=== PATIENT | female | born 1945 | race Caucasian/White ===

== ENCOUNTER 2019-12-19 06:28 | Inpatient (IN) | payer MEDICARE, OTHER, SELFPAY ==
[2019-12-07 12:56] VITALS: BMI 49.0
[2019-12-19] VITALS (14 sets, daily range): BP systolic 105–132; BP diastolic 59–73; PULSE 72–85; RESP 14–20; TEMP 35.8–36.8; O2SAT 92–99; BMI 49.0
[2019-12-19] MEDS: LACTATED RINGERS 1,000 ML 42 ML IV (08:29)
--- NOTE | 2019-12-19 08:31 | DI.RAD.S_ITS ---
PROCEDURE: XR KNEE LT 1TO2V INDICATIONS: total left knee TECHNIQUE: 2 views of the knee were acquired. COMPARISON: None. FINDINGS: Bones: Status post knee arthroplasty. Alignment is anatomic. No suspicious bony lesions. Soft tissues: No joint effusion. No suspicious soft tissue calcifications. IMPRESSION: Expected appearance following knee arthroplasty. Dictated by: Tahmina Benito M.D. on 12/19/2019 at 11:36 Approved by: Tahmina Benito M.D. on 12/19/2019 at 11:37
[2019-12-19] MEDS: CELECOXIB 200 MG CAPSULE PO (08:41)
[2019-12-19] MEDS: ACETAMINOPHEN 325 MG TABLET 975 MG PO (08:41)
[2019-12-19] MEDS: PREGABALIN 75 MG CAPSULE PO (08:41)
--- NOTE | 2019-12-19 08:42 | PM.PREOP ---
Pre-operative Note Interval Note History & Physical reviewed/Exam performed by Physician: Yes Changes to H&P: No
--- NOTE | 2019-12-19 08:47 | P.OP_ITS ---
Operative Date/Time/Diagnoses Date of procedure: 12/19/19 Time of procedure: 10:41 Pre-op diagnosis: Left knee osteoarthritis Post-op diagnosis: same Procedure & Clinicians Procedure: Left total knee arthroplasty Same procedure as scheduled: Yes Indications: The patient presents today for total knee arthroplasty after failure of conservative treatment. The nature of the procedure including the risks and benefits, alternatives, postoperative course and expected outcome were discussed and all questions answered. Consent was obtained. Operative site confirmed and marked. Surgeon: Randy Irving Motion Picture Equipment Machinist: Hai Yarbrough Anesthesia Type: General, Spinal and Local Operative Notes Findings: The patient's leg was quite large and she had a significant loss of range of motion which was approximately 10-80 when measured after anesthesia. A standard femoral cut was made with a 12 mm cut was made off the lateral tibial side. Standard exposure and osteophyte removal was utilized medially. The knee was still tight in both flexion and extension. Another 2 mm of tibia was then cut. This nicely balance the knee. I did leave the knee with a slight bit of increased laxity in both flexion and extension given her severe loss of motion preoperatively. Patellar tracking was excellent. The tibial bone did seem somewhat soft so a 100 mm x 12 mm stem was utilized. Closure Type: primary Specimen(s): none sent Prosthetic devices, grafts, tissues, transplants, or devices: [employer] BCS: 4 femoral component, 3 tibial component, 9 mm BCS polyethylene tray with 100 mm long 12 mm diameter stem and 29 x 7.5 mm round patella Applied: implant(s) Estimated Blood Loss (mL): 10 Blood products transfused: none Tourniquet time (min): 71 Procedure in detail: The patient was taken to the operative suite and placed under anesthesia. The patient was given prophylactic antibiotics prior to surgery. The patient was also given tranexamic acid, 1 g, just prior to surgery for postoperative hemostasis. The lateral knee was prepped and the joint injected with 20 mL of 1% Lidocaine with epinephrine. The knee was then prepped and draped in usual sterile fashion. The leg was exsanguinated with an Esmarch dressing and the tourniquet raised to 250 torr. A 15 cm anterior incision was made. Next a medial trivector arthrotomy was made. The extensor mechanism was marked to ensure accurate repair. Initial exposing dissection was carried out medially and laterally. The knee was then flexed and the intramedullary femoral guide fermin placed. The distal femoral cut was made in 6? of valgus at the +0 position. The femoral size was measured and the appropriate cutting block was then placed and the anterior, posterior and chamfer cuts made. The intramedullary tibial alignment fermin was then placed. The guide was set to remove approximately 12 mm from the less affected lateral side. The proximal tibial cut was then made with an oscil lating saw. All meniscus and bony debris was then removed. Posterior femoral osteophytes removed with a curved osteotome. Flexion extension gaps were checked. No specific balancing was required other than routine exposure and removal of osteophytes. The knee was tight in both flexion and extension other 2 mm of tibial bone was removed. The soft tissues were then injected with a combination of 20 mL of half percent Marcaine with epinephrine and 20 mL of Exparel. The trial components were then placed. The knee was then extended and the patellar thickness was measured and a cut made removing approximately 7-8 mm of bone. The patella was then sized and drilled. Some excess lateral bone was excised and the patellofemoral ligament released. The knee went into full extension and flexion beyond 120?. Flexion was mainly stop by soft tissue. There was excellent medial-lateral balance throughout motion. I did leave the knee slightly looser in both flexion and extension due to her significant motion loss prior to surgery. Patellar tracking was excellent. The trial components were removed and the knee was cleansed with Pulsavac irrigation and dried. The final components were cemented with high viscosity vacuum mixed bone cement with antibiotics. The joint was filled with a dilute Betadine solution. The knee was held in extension and the patellar clamped until the cement was adequately cured. The knee was then irrigated. The extensor mechanism was closed with 5 interrupted #1 Vicryl sutures and a running Quill suture at approximately 90 degrees of flexion. The joint was then injected with a combination of 1 g of tranexamic acid and 20 mL of quarter percent Marcaine with epinephrine. The subcutaneous tissue was closed with 2 0 Vicryl. The skin was closed with absorbable subcuticular sutures and surgical adhesive. An Aquacel dressing and Jann wrap were then applied. The patient tolerated the procedure well and was returned to recovery room in good condition. Complications: none Post-operative Condition: stable Disposition: PACU Plan for aftercare: Standard postoperative total knee protocol.
[2019-12-19] MEDS: CEFAZOLIN 2 GM/100 ML FROZ.PIGGY IV (08:58)
--- NOTE | 2019-12-19 09:37 | SUR.OPER ---
Supine on padded OR bed. Pillow under head, arms secured on padded armboards <90 degree abduction. Safety belt across torso. Non-operative leg secured with tape over blanket over lower leg. Operative leg secured in [place] positioner. Foam padded brace at thigh of operative leg.
[2019-12-19] MEDS: BUPIVACAINE 0.25% W/ EPI (PF) 40 ML, BUPIVACAINE LIPOSOME 266 MG, SODIUM CHLORIDE 0.9% ... INJ (09:42)
[2019-12-19] MEDS: BUPIVACAINE 0.25% W/ EPI (PF) 20 ML, TRANEXAMIC ACID 1,000 MG, SODIUM CHLORIDE 0.9% 10 ML INJ (09:44)
[2019-12-19] MEDS: LIDOCAINE 1% W/EPI 20 ML INJ (09:45)
[2019-12-19] MEDS: LACTATED RINGERS 1,000 ML 125 ML IV ×2 (12:41→20:37)
[2019-12-19] MEDS: HYDROMORPHONE 2 MG TABLET PO (12:41)
[2019-12-19] MEDS: ACETAMINOPHEN 325 MG TABLET 650 MG PO (14:04)
[2019-12-19] MEDS: IBUPROFEN 400 MG TABLET PO ×2 (14:04→16:54)
--- NOTE | 2019-12-19 14:30 | PT.IIE ---
Current Diagnoses Bilateral primary osteoarthritis of knee (12/19/19) Surgery Performed Operation Date: 12/19/19 08:45 Actual Procedures p Total Knee Arthroplasty(Left) - Randy Irving MD Surgical History (Last Updated 12/07/19 @ 13:21 by Gris Selby RN) Hx of appendectomy (Acute) Hx of arthroscopy of left knee (Acute) Hx of arthroscopy of right knee (Acute) Hx of cholecystectomy (Acute) Hx of eye surgery (Acute) Hx of tubal ligation (Acute) Medical History (Last Updated 12/07/19 @ 13:21 by Gris Selby RN) Claustrophobia (Acute) Eczema (Acute) Hearing impaired (Acute) HLD (hyperlipidemia) (Acute) HTN (hypertension) (Acute) Hypothyroidism (Acute) Melanoma (Acute ~2018) BIMAL on CPAP (Acute) Osteoarthritis (Acute) Physical Therapy Inpatient Evaluation/Re-Eval M1 PT/OT-IP Prior Functional Status Start: 12/19/19 16:16 Freq: NEEDED Status: Active Protocol: Document 12/19/19 14:30 AB (Rec: 12/19/19 16:37 AB [id number]) Medical Review Prior Functional Status Medical History Reviewed Yes Communication able to make needs known Mobility and Gait pt stated that she is modified independent with all mobilities and ambulation using 4WW indoors and SPC outdoors Social History Household Members spouse,children Living Arrangements House Number of Floors (Floors) Two Floors Number of Stairs To Enter/Railing? 2 steps to enter without rails from the garage 5 steps from the back/porch with L rail ascending to bedroom level 3 steps with bilateral rail s+ 12 steps with L rail ascending Home Environment Standard Height Toilet,Walk in Shower Home Equipment Four Wheel Walker,Straight Cane Additional Social History Comment pt has a toilet safety frame pt has an adjustable bed M2 PT-IP Current Condition Start: 12/19/19 16:16 Freq: NEEDED Status: Active Protocol: Document 12/19/19 14:30 AB (Rec: 12/19/19 16:37 AB [id number]) Physical Therapy Current Condition Current Condition Evaluation Date 12/19/19 Treatment Diagnosis s/p L TKA; difficulty in walking Onset Date 12/19/2019 Weight Bearing Status Weight Bearing Status Weight Bear as Tolerated Allowed Weight Bearing Amount (enter % LLE WBAT or #) (%) M3 PT-IP Subjective Start: 12/19/19 16:16 Freq: NEEDED Status: Active Protocol: Document 12/19/19 14:30 AB (Rec: 12/19/19 16:37 AB [id number]) Subjective Physical Therapy Visit Type Type Initial Evaluation Visit Start Time 14:30 Visit Stop Time 15:30 Total Visit Minutes 60 Number of COMMERCIAL COLLECTOR Visits 0 Physical Therapy Visit Comments Patient Comments agreeable to do PT Therapy Pain Assessment Pain When Pain Assessed During Mobility Pain Present Pain Present Pain Reported Location Left Knee Intensity 5 Pain Management Techniques Apply Cold M4 PT-IP Mobility and Gait Start: 12/19/19 16:16 Freq: NEEDED Status: Active Protocol: Document 12/19/19 14:30 AB (Rec: 12/19/19 16:37 AB [id number]) PT-Bed Mobility Assessment Supine to Sit Supine to Sit Minimal Assistance,Head of Bed Elevated Scooting Scooting to Edge of Bed Contact Guard Assistance PT-Transfer Assessment Sit to and From Stand Sit to and from Stand Minimal Assistance,1 Person Assistance,Use of Upper Extremities Equipment Transfer Assistive Device Gait Belt,Front Wheeled Walker Orthotic/Prosthetic Devices or Brace: No Transfers Transfer Destination Chair Transfer Technique ambulated using FWW Transfer Ability Level of Assist Minimal Assistance,1 Person Assistance Comments Mobility Comments pt completed supine to sit initially with bed straight but unable to sit up and HOB elevated and completed with min A and cues. pt has an adjustable bed at home. pt was able to sit on EOB SBA. completed sit to stand min A and cues. ambulated towards the chair using FWW ~ 12 ft min A and cues. c/o slight dizziness after ambulation but disappeared upon sitting on chair. positioned pt on chair . call light and table placed within reach. informed pt regarding DME needs and pt agreed and understood. Gait Assessment Gait Gait Assistance Required: Minimum Assistance Distance (Feet) 12 Able to Maintain Weight Bearing Status Yes During Gait Assistive Devices Assistive Device Gait Belt,Front Wheeled Walker Orthotic/Prosthetic Devices or Brace: No Gait Deviations General Gait Pattern Antalgic,Decreased Stride Length,Decreased Feet Clearance,Step-to Gait Factors Limiting Gait Function Factors Limiting Gait Function Decreased Activity Tolerance, Decreased Strength,Limited Range of Motion,Pain,Poor Balance,Poor Safety Awareness PT-Balance Assessment Sitting Balance and Reactions Static Sitting Balance Ability Good Dynamic Sitting Balance Ability Good Standing Balance and Reactions Static Standing Balance Ability Fair Dynamic Standing Balance Ability Fair Device Used FWW M5 PT-IP Objective Assessments Start: 12/19/19 16:16 Freq: NEEDED Status: Active Protocol: Document 12/19/19 14:30 AB (Rec: 12/19/19 16:37 AB [id number]) Orientation Orientation/Cognition Level of Alertness Alert Orientation Name,Place,Situation Language Function Ability No Deficits Noted Safety Awareness Understands Safety Issues Memory Description No Deficits Noted Gross Range of Motion Lower Extremity ROM Assessment Left Impaired Impairments L knee flexion ~ 50 deg Strength Lower Extremity Strength Assessment Left Impaired Hip 4-/5 Knee 3+/5 Coordination Assessment Gross Coordination Gross Coordination WNL Sensation Assessment Sensation Gross Sensation WNL Muscle Tone Muscle Tone WNL Yes M6 PT-IP Treatment Start: 12/19/19 16:16 Freq: NEEDED Status: Active Protocol: Document 12/19/19 14:30 AB (Rec: 12/19/19 16:37 AB [id number]) Physical Therapy Treatment Education Education Provided Precautions,Weight Bearing Status,Post-Op Packet,Safety M7 PT-IP Assessment and Plan Start: 12/19/19 16:16 Freq: NEEDED Status: Active Protocol: Document 12/19/19 14:30 AB (Rec: 12/19/19 16:37 AB [id number]) PT Summary Assessment and Plan Potential Rehabilitation Potential Good Status of Condition at Evaluation Stable Summary Impairments Pain,ROM,Strength,Balance,Bed Mobility,Transfers,Gait, Activity Tolerance Assessment Summary pt requirng min A with mobility using FWW. will likely progress during hospital stay. pt will have her spouse and son to assist her at home and stated that she is set up for outpt PT. will continue to assess pt's progress for safe d/c plan. Goals Bed Mobility Goal Independent Transfer Goal Independent,Front Wheeled Walker,Four Wheeled Walker Gait Goal Independent,Front Wheel Walker ,Four Wheel Walker Gait Distance 150 Other Goals up/down 12 steps L rail ascending CGA Days to Meet Goals 5 Frequency of Treatment Frequency Of Treatment Twice a Day Treatment Plan Physical Therapy Treatment Plan Bed Mobility Training,Transfer Training,Gait Training, Therapeutic Exercise,Balance Retraining,Post Op Education, Discharge Planning,Hot or Cold Pack,Neuromuscular Re-ed, Coordination Retraining,Manual Therapy Recommendations To Nursing Amount of Assist Needed 1 Person Assist Discharge Recommendations PT Discharge Recommendations Home with Assistance, Outpatient PT Equipment Needed for Home Before FWW if not safe with 4WW Discharge Transportation Needs at Discharge Private Vehicle
--- NOTE | 2019-12-19 14:31 | PC.NURSE ---
Patient to floor after having surgery to her L.knee. Dressing with aquacel and giorgio wrap intact. Patients skin wnl, she did have some yeast under her r. breast without any redness. On LR at 125cc/hr. Given dilaudid po and not super helpful. Then given tylenol and ibuprofen for comfort. She has been voiding on the bed monae and tolerating well. at bedside.
[2019-12-19] MEDS: ATORVASTATIN 20 MG TABLET PO (16:54)
[2019-12-19] MEDS: OXYCODONE IR 5 MG TABLET 10 MG PO (16:54)
[2019-12-19] MEDS: CEFAZOLIN VIAL 3 GM in SODIUM CHLORIDE 0.9% 100 ML 200 ML IV (17:05)
[2019-12-19] MEDS: ONDANSETRON 4 MG/2 ML INJ IV (19:22)
[2019-12-20] VITALS (13 sets, daily range): BP systolic 65–133; BP diastolic 33–62; PULSE 58–92; RESP 18–20; TEMP 35.9–37.2; O2SAT 92–96
[2019-12-20] MEDS: CEFAZOLIN VIAL 3 GM in SODIUM CHLORIDE 0.9% 100 ML 200 ML IV (00:47)
[2019-12-20] MEDS: IBUPROFEN 400 MG TABLET PO ×4 (00:48→13:26)
[2019-12-20 07:16] LABS: Hematocrit 33.9 % (36-46); Hemoglobin 11.6 g/dL (12.0-16.0)
[2019-12-20] MEDS: ASPIRIN EC 81 MG TABLET PO ×2 (08:14→22:20)
[2019-12-20] MEDS: LEVOTHYROXINE 100 MCG TABLET PO (08:15)
[2019-12-20] MEDS: LOSARTAN 50 MG TABLET 75 MG PO (08:15)
[2019-12-20] MEDS: ACETAMINOPHEN 325 MG TABLET 650 MG PO ×3 (08:16→22:20)
[2019-12-20] MEDS: METOPROLOL ER 50 MG TABLET 100 MG PO (08:16)
[2019-12-20] MEDS: AMLODIPINE 5 MG TABLET PO (08:16)
--- NOTE | 2019-12-20 09:28 | PT.IPTN ---
Addendum entered and electronically signed by Maria Elena Vincent PTA 12/20/19 12:58: Pt reported dizziness, feeling weird once sitting chair and muffled hearing me. Vital taken 91% on room air, BP 89/46, HR 70bpm and + SOB. Improved with cuing for pursed breathing. Assisted patient recline in chair and stated felt better. Notified assistant foreman to pass along to nurse. Suggested to assistant foreman to provide patietn with cold back for L knee wtih confirmation. Original Note: Current Diagnoses Bilateral primary osteoarthritis of knee (12/19/19) Surgery Performed Operation Date: 12/19/19 08:45 Actual Procedures p Total Knee Arthroplasty(Left) - Randy Irving MD Physical Therapy Treatment Note M2 PT-IP Current Condition Start: 12/19/19 16:16 Freq: NEEDED Status: Active Protocol: Document 12/19/19 14:30 AB (Rec: 12/19/19 16:37 AB [id number]) Physical Therapy Current Condition Current Condition Evaluation Date 12/19/19 Treatment Diagnosis s/p L TKA; difficulty in walking Onset Date 12/19/2019 Weight Bearing Status Weight Bearing Status Weight Bear as Tolerated Allowed Weight Bearing Amount (enter % LLE WBAT or #) (%) M3 PT-IP Subjective Start: 12/19/19 16:16 Freq: NEEDED Status: Active Protocol: Document 12/20/19 08:48 SP (Rec: 12/20/19 12:09 SP [email or web address]) Subjective Physical Therapy Visit Type Type Treatment Note Visit Start Time 08:48 Visit Stop Time 09:28 Total Visit Minutes 40 Number of PRODUCT MANAGER E [employer]ER[employer] Visits 1 Physical Therapy Visit Comments Patient Comments Pt agreeable to working with PT. Therapy Pain Assessment Pain When Pain Assessed During Mobility Pain Present Pain Present Pain Reported Location Left Knee Intensity 3 Scale Used Numeric (1 - 10) Pain Management Techniques Re-positioning,Timing of Activity with Medications M4 PT-IP Mobility and Gait Start: 12/19/19 16:16 Freq: NEEDED Status: Active Protocol: Document 12/20/19 08:48 SP (Rec: 12/20/19 12:09 SP [id number]) PT-Bed Mobility Assessment Supine to Sit Supine to Sit Standby Assistance,Head of Bed Elevated,Bedrails Scooting Scooting to Edge of Bed Standby Assistance PT-Transfer Assessment Sit to and From Stand Sit to and from Stand Standby Assistance,Contact Guard Assistance,Use of Upper Extremities Equipment Transfer Assistive Device Gait Belt,Front Wheeled Walker Orthotic/Prosthetic Devices or Brace: No Transfers Transfer Destination Chair,Wheelchair Transfer Technique pt ambulated using FWW Transfer Ability Level of Assist Standby Assistance,Contact Guard Assistance,Use of Upper Extremities Comments Mobility Comments Pt was laying in bed when arrived. Elevated supine to sitting (stated has elevated bed at home) with ability to reposition LLE no UE supporte required and scoot to EOB SBA. Sit to stand with cuing for use of 1-2 UE press up from bed and other on FWW for self support CGA intially then SBA rest of performances from w/c. Cued patient for BLE closer together inside FWW positioning prior to coming to stand with LLE out front more and RLE knee flexed with foot under her for easier hip hinge wt shift to standing. Pt performed 3 sit to stands from w/c with occasional cuing for UE positioning and slow descent with hip hinge with good follow through. Pt was up in chair when returned from ambulation in hallway and stair mgt. She had call light and all needs in reach with BLE on floor or able to prop up on cushion to allow self knee flexion exercises between PT sessions. Pt identified proper use of call llight for help to get up if needed. Gait Assessment Gait Gait Assistance Required: Standby Assistance Distance (Feet) 70 Able to Maintain Weight Bearing Status Yes During Gait Assistive Devices Assistive Device Gait Belt,Front Wheeled Walker Orthotic/Prosthetic Devices or Brace: No Gait Deviations General Gait Pattern Antalgic,Decreased Stride Length,Decreased Feet Clearance,Step-to Gait Factors Limiting Gait Function Factors Limiting Gait Function Decreased Activity Tolerance, Decreased Strength,Limited Range of Motion,Pain,Poor Balance,Poor Safety Awareness Comments Gait Comments Pt was able to tolerated further distance approx 70 ft x2 before requiring seated rest using fWW SBA with cuing for increased L knee flexion and heel toe gait with step over step to progress toward normal patterning with good follow through durign intermitttent cuing. Pt required w/c follow secondary to decreased activity tolerance with stating pain didn't increase. Stair Climbing Assessment Evaluation Level of Assist On Stairs Minimal Assistance,1 Person Assistance Devices Stair Climbing Assistive Devices Left Railing Technique/Endurance Stair Climbing Direction Ascend and Descend Stair Climbing Technique Step to Step Number of Steps Climbed 3 Stair Climbing Set # Repetitions (reps) 1 Comments Stair Climbing Comments Pt was able to complete only 1 set of 3 stair mgt durign tx secondary to decreased activity tolerance and L knee pain 3/10 using L HR with BUE and Min A to ascend and CGA descend with occasional cuing for intial step patterning up RLE leading and LLE leading descend,stable no LOB. Cued x1 for trunk wt shift forward initialy 1 step ascend for safety and COG over ILIANA. PT-Balance Assessment Sitting Balance and Reactions Static Sitting Balance Ability Good Dynamic Sitting Balance Ability Good Standing Balance and Reactions Static Standing Balance Ability Fair Dynamic Standing Balance Ability Fair Device Used FWW M5 PT-IP Objective Assessments Start: 12/19/19 16:16 Freq: NEEDED Status: Active Protocol: Document 12/19/19 14:30 AB (Rec: 12/19/19 16:37 AB [id number]) Orientation Orientation/Cognition Level of Alertness Alert Orientation Name,Place,Situation Language Function Ability No Deficits Noted Safety Awareness Understands Safety Issues Memory Description No Deficits Noted Gross Range of Motion Lower Extremity ROM Assessment Left Impaired Impairments L knee flexion ~ 50 deg Strength Lower Extremity Strength Assessment Left Impaired Hip 4-/5 Knee 3+/5 Coordination Assessment Gross Coordination Gross Coordination WNL Sensation Assessment Sensation Gross Sensation WNL Muscle Tone Muscle Tone WNL Yes M6 PT-IP Treatment Start: 12/19/19 16:16 Freq: NEEDED Status: Active Protocol: Document 12/20/19 08:48 SP (Rec: 12/20/19 12:09 SP [id number]) Physical Therapy Treatment Exercises Exercises Ankle Pumps,Gluteal Sets,Quad Sets,Heel Slides,Supine Hip Abduction,Seated Knee Flexion/ Extension Knee ROM Measurement approx 90 deg seated self performance in chair post amb Education Education Provided Precautions,Weight Bearing Status,Post-Op Packet,Safety Other Treatments Other Treatment Performed Educated self knee flexion and heel raises while seated in chair to improved L knee flexion for more normal range ffor gait. M7 PT-IP Assessment and Plan Start: 12/19/19 16:16 Freq: NEEDED Status: Active Protocol: Document 12/20/19 08:48 SP (Rec: 12/20/19 12:09 SP [email or web address]) PT Summary Assessment and Plan Potential Rehabilitation Potential Good Status of Condition at Evaluation Stable Summary Impairments Pain,ROM,Strength,Balance,Bed Mobility,Transfers,Gait, Activity Tolerance Assessment Summary pt requirng CG initilly then SBA with mobility using FWW, Min A ascend and CGA descend 3 stairs LHR. Pt has 12 stairs to complete at home using L HR. Discussed need for caregiver training with / son and performance 12 stairs prior to DC. Pt stated son might add hand rail in garage prior to DC but unsure but at this time there is none but easier 3 consecutive steps to manage will keep PT posted. PRODUCT MANAGER E [employer]ERCE requested a pic if possible after complete if prior to DC otherwise has to complete 12 step L HR. pt will have her spouse and son to assist her at home and stated that she is set up for outpt PT. will continue to assess pt's progress for safe d/c plan. Goals Bed Mobility Goal Independent Transfer Goal Independent,Front Wheeled Walker,Four Wheeled Walker Gait Goal Independent,Front Wheel Walker ,Four Wheel Walker Gait Distance 150 Other Goals up/down 12 steps L rail ascending CGA Days to Meet Goals 5 Frequency of Treatment Frequency Of Treatment Twice a Day Treatment Plan Physical Therapy Treatment Plan Bed Mobility Training,Transfer Training,Gait Training, Therapeutic Exercise,Balance Retraining,Post Op Education, Discharge Planning,Hot or Cold Pack,Neuromuscular Re-ed, Coordination Retraining,Manual Therapy Other Recommendations and Next Treatment Caregiver training /son Focus , ambulate with 4WW (need FWW if not safe with 4WW), stair mgt usign LHR 12 stairs. Recommendations To Nursing Amount of Assist Needed 1 Person Assist Discharge Recommendations PT Discharge Recommendations Home with Assistance, Outpatient PT Equipment Needed for Home Before FWW if not safe with 4WW Discharge Transportation Needs at Discharge Private Vehicle
--- NOTE | 2019-12-20 10:21 | PC.NURSE ---
TRAPPER BIRD reported that P.T. told her patient had some dizziness and clogged hearing after her physical therapy. Patient assessed, sitting up in chair and states she does feel better now at rest. BP 108/54, HR 76. Instructed to call for changes, or wanting to get up. Patient comfortable in chair, and aquacel and giorgio wrap remain in place, unchanged. Call light within reach. Continue to monitor.
--- NOTE | 2019-12-20 12:16 | CM.DANOTE ---
DCP; Case received, EMR reviewed and met with patient. , Cem, was also at bedside. Was able to obtain information from patient regarding her baseline activity level prior to her having surgery. DCP assessment completed with information currently available. Patient is a 74 year old female who admitted yesterday morning to the care of the orthopedic team. PCP: [facility]. Patient came to the hospital for a surgical procedure. She had a left total knee arthroplasty. Patient has history of chronic knee pain. Met with patient and her in her room. Patient is pleasant, alert and oriented. Her and her reside in [place]. They also have a son named Vishal, who lives near by and helps out. According to patient, Vishal had been installing railing in the home. He also installed railing in her bathroom by her toilet area. Patient does have stairs in her home, and she stated, she has been able to navigate them, but has been challenging. She does drive, but mentioned that she uses [employer] for groceries, and [employer] as well. She stated and confirmed that she has good family support when she goes home. She will also be doing outpatient P.T. P: DCP to be available for any resources needed. Patient should be able to go home when she is medically stable and cleared by P.T. Patty Hooker RN/Detonator Maker
--- NOTE | 2019-12-20 12:40 | P.PN_ITS ---
Subjective Subjective Date Patient Seen: 12/20/19 Time Patient Seen: 07:00 Interval history: POD #1 s/p left total knee arthroplasty with Dr. Irving. Patient complains of mild to moderate pain in left knee. Rates 4/10. Overnight pain was managed with dilaudid 2mg PO and oxycodone 10mg PO. Per patient, dilaudid did nothing for the pain and states she does better with hydrocodone. Voiding without difficulty/assistance. Mobilizing slowly with PT, 1 assist. She needs to be cleared for 12 steps at home. Denies fever, chills, chest pain, shortness of breath, nausea, vomiting, dizziness, numbness, tingling. Exam Vital Signs (past 8 hours): - 12/20/19 08:00 12/20/19 08:15 12/20/19 08:16 Temperature 98.6 F Pulse Rate 81 Respiratory Rate 18 Blood Pressure 125/59 L 125/59 L 125/59 L Pulse Oximetry 94 12/20/19 10:20 12/20/19 11:25 12/20/19 12:00 Temperature 97.6 F Pulse Rate 76 69 69 Respiratory Rate 18 Blood Pressure 108/54 L 123/55 L 123/55 L Pulse Oximetry 96 Oxygen Delivery Method Room Air,CPAP Oxygen Flow Rate 0 Narrative Exam Narrative: 74 yo morbidly obese female is laying comfortably in bed, in no apparent distress. A&Ox3. Dressing has mild shadow drainage. SCDs in place. Able to actively dorsiflex/plantar flex BL. Sensory function grossly intact to light touch in LE BL. Dorsalis pedis 2+ BL. Calves warm, soft, compressible, non tender to palpation BL. Objective Labs Result Diagrams: 12/20/19 07:00 Labs: Laboratory Results - last 24 hr 12/20/19 07:00 Hgb 11.6 L Hct 33.9 L Assessment & Plan Post-op Postoperative Procedures: Procedures Operation Date: 12/19/19 08:45 Actual Procedures Side Surgeon p Total Knee Arthroplasty Left Randy Irving MD Postoperative plan narrative: Change pain medication management - discontinued d ilaudid PO, ordered oxycodone 5mg and norco. Per patient, would like to try lower dose. Mobilize with PT - currently 1 assist and needs to pass multiple steps for clearance Continue SCDs and ASA 81mg BID for DVT prophylaxis Patient will likely discharge home in next 24-48 hours pending PT clearance for steps Time Spent With Patient Time with patient: less than 15 minutes Quality VTE Deep Vein Thrombosis/Pulmonary Embolism Present on Admission: No
[2019-12-20] MEDS: HYDROCODONE/ACET 5/325 TABLET 1 TAB PO ×3 (14:39→22:21)
--- NOTE | 2019-12-20 14:40 | PT.IPTN ---
Current Diagnoses Bilateral primary osteoarthritis of knee (12/19/19) Surgery Performed Operation Date: 12/19/19 08:45 Actual Procedures p Total Knee Arthroplasty(Left) - Randy Irving MD Physical Therapy Treatment Note M2 PT-IP Current Condition Start: 12/19/19 16:16 Freq: NEEDED Status: Active Protocol: Document 12/19/19 14:30 AB (Rec: 12/19/19 16:37 AB [id number]) Physical Therapy Current Condition Current Condition Evaluation Date 12/19/19 Treatment Diagnosis s/p L TKA; difficulty in walking Onset Date 12/19/2019 Weight Bearing Status Weight Bearing Status Weight Bear as Tolerated Allowed Weight Bearing Amount (enter % LLE WBAT or #) (%) M3 PT-IP Subjective Start: 12/19/19 16:16 Freq: NEEDED Status: Active Protocol: Document 12/20/19 13:45 SP (Rec: 12/20/19 16:00 SP [id number]) Subjective Physical Therapy Visit Type Type Treatment Note Visit Start Time 13:45 Visit Stop Time 14:40 Total Visit Minutes 55 Notes completed caregiver training. Number of WOOL CLASSER Visits 2 Physical Therapy Visit Comments Patient Comments Pt agreeable to working with PT. Therapy Pain Assessment Pain When Pain Assessed During Mobility Pain Present Pain Present Pain Reported Location Left Knee Intensity 6 Scale Used Numeric (1 - 10) Pain Management Techniques Apply Cold,Re-positioning, Timing of Activity with Medications M4 PT-IP Mobility and Gait Start: 12/19/19 16:16 Freq: NEEDED Status: Active Protocol: Document 12/20/19 13:45 SP (Rec: 12/20/19 16:00 SP [id number]) PT-Bed Mobility Assessment Sit to Supine Sit to Supine Moderate Assistance,1 Person Assistance PT-Transfer Assessment Sit to and From Stand Sit to and from Stand Contact Guard Assistance, Minimal Assistance,1 Person Assistance,Use of Upper Extremities Equipment Transfer Assistive Device Gait Belt,Front Wheeled Walker ,4 Wheeled Walker Orthotic/Prosthetic Devices or Brace: No Transfers Transfer Destination Chair,Wheelchair Transfer Technique pt ambulated using 4WW/FWW, and step pivot tranfer Transfer Ability Level of Assist Contact Guard Assistance, Minimal Assistance,1 Person Assistance,Use of Upper Extremities Comments Mobility Comments Pt was seated in chair with BLE elevated when arrived, present to complete caregiver training. donned gait belt and provided CGA sit to stand. WOOL CLASSER educated proper 4WW brake mgt for safety use and brake mgt during stepping with slow pacing for safety awareness prior to standing with good follow throughout treatment, good hand placement and slow descent in to w/c during gait in hallway secondary to decreased activity tolerance same approx 70 ft before required seated rest, CGA using 4WW with good slow pacing. WOOL CLASSER provided assist to push patient rest of distance to stairs while managed the 4WW. provided CGA- Min A ascending/ descending during stair mgt with cuing for body positoning safety for both andproper hand placement with gait belt with good follow through. Pt reported pretty tired and feeling little light headed at top of stairs with demonstration of resting head on arms resting on rail. was able to give her Min support to descend 3 stairs step to patterning more side stepping, stable, no LOB . Pt immediately sat in chair. Pt stated I am really dizzy, not feeling well. WOOL CLASSER requested nearby INBOUND CUSTOMER SERVICE AGENT to acquire BP cuff with no success finding one. WOOL CLASSER pushed patient down to room with following with 4WW. WOOL CLASSER assess vitals while patient seated in w/c with reading 65/ 32 HR 58 SaO2 95% on room air. WOOL CLASSER assisted patient step pivot transfer using FWW w/c to bed with increase support Min A and cuing for safety of BLE into extension during pivot to prevent knee buckling, stable. sitting to supine Mod A for BLE into bed. Pt vitals taken again after 2 min: BP 99/33 HR 66. Nurse arrived in room during supine vitals and discussed response to treatment. Gait Assessment Gait Gait Assistance Required: Contact Guard Assist,1 Person Assist Distance (Feet) 70 Able to Maintain Weight Bearing Status Yes During Gait Assistive Devices Assistive Device Gait Belt,Front Wheeled Walker Orthotic/Prosthetic Devices or Brace: No Gait Deviations General Gait Pattern Antalgic,Decreased Stride Length,Decreased Feet Clearance Factors Limiting Gait Function Factors Limiting Gait Function Decreased Activity Tolerance, Decreased Strength,Limited Range of Motion,Pain,Poor Safety Awareness Comments Gait Comments See mobility comments. Pt decreased gait sets today 70 ft only with using 4WW CGA, improved self corrections of L knee flexion heel toe gait with increased stride and educating awareness to remind her but not to big of steps. Unable to complete second set due to dizziness post stairs and report of light headness. Stair Climbing Assessment Evaluation Level of Assist On Stairs Minimal Assistance,1 Person Assistance Devices Stair Climbing Assistive Devices Left Railing Technique/Endurance Stair Climbing Direction Ascend and Descend Stair Climbing Technique Step to Step Number of Steps Climbed 3 Stair Climbing Set # Repetitions (reps) 1 Comments Stair Climbing Comments See mobility comments. PT-Balance Assessment Sitting Balance and Reactions Static Sitting Balance Ability Good Dynamic Sitting Balance Ability Good Standing Balance and Reactions Static Standing Balance Ability Fair Dynamic Standing Balance Ability Fair Device Used FWW M5 PT-IP Objective Assessments Start: 12/19/19 16:16 Freq: NEEDED Status: Active Protocol: Document 12/19/19 14:30 AB (Rec: 12/19/19 16:37 AB [id number]) Orientation Orientation/Cognition Level of Alertness Alert Orientation Name,Place,Situation Language Function Ability No Deficits Noted Safety Awareness Understands Safety Issues Memory Description No Deficits Noted Gross Range of Motion Lower Extremity ROM Assessment Left Impaired Impairments L knee flexion ~ 50 deg Strength Lower Extremity Strength Assessment Left Impaired Hip 4-/5 Knee 3+/5 Coordination Assessment Gross Coordination Gross Coordination WNL Sensation Assessment Sensation Gross Sensation WNL Muscle Tone Muscle Tone WNL Yes M6 PT-IP Treatment Start: 12/19/19 16:16 Freq: NEEDED Status: Active Protocol: Document 12/20/19 13:45 SP (Rec: 12/20/19 16:00 SP [id number]) Physical Therapy Treatment Education Education Provided Precautions,Weight Bearing Status,Safety M7 PT-IP Assessment and Plan Start: 12/19/19 16:16 Freq: NEEDED Status: Active Protocol: Document 12/20/19 13:45 SP (Rec: 12/20/19 16:00 SP [id number]) PT Summary Assessment and Plan Potential Rehabilitation Potential Good Status of Condition at Evaluation Stable Summary Impairments Pain,ROM,Strength,Balance,Bed Mobility,Transfers,Gait, Activity Tolerance Assessment Summary Pt decreased activity tolerance on stairs and gait, noted decrease in BP during stair mgt. Pt required CGA- Min during mobilitiy using 4WW intially then FWW to step pivot w/c to bed and Min A for BLE into bed secondary to lightheaded/dizzy endof tx with decrease in BP noted. Pt was laying in bed with LLE supported on pillows in comforted extension. Cued for slow diaphramatic breathing. see mobility comments. complete caregiver training including transfers, gait and stair mgt only able to tolerate 3 stairs LHR but requires 12 step prior to DC unless patient plans on not going up to second level to bedroom then only needs to ascend/descend 3 stairs front or garage if son install rails . and patient discussed possibilities if stair to challenging to go to bedroom. WOOL CLASSER requested a pic if rails in garage are installed. pt will have her spouse and son to assist her at home and stated that she is set up for outpt PT. will continue to assess pt's progress for safe d/c plan. Goals Bed Mobility Goal Independent Transfer Goal Independent,Front Wheeled Walker,Four Wheeled Walker Gait Goal Independent,Front Wheel Walker ,Four Wheel Walker Gait Distance 150 Other Goals up/down 12 steps L rail ascending CGA Days to Meet Goals 5 Frequency of Treatment Frequency Of Treatment Twice a Day Treatment Plan Physical Therapy Treatment Plan Bed Mobility Training,Transfer Training,Gait Training, Therapeutic Exercise,Balance Retraining,Post Op Education, Discharge Planning,Hot or Cold Pack,Neuromuscular Re-ed, Coordination Retraining,Manual Therapy Other Recommendations and Next Treatment Continue Caregiver training Focus /son, ambulate with 4WW stair mgt usign LHR 12 stairs . Check orthostatic vitals prior to tx and have portable during tx. Recommendations To Nursing Amount of Assist Needed Standby Assistance Discharge Recommendations PT Discharge Recommendations Home with Assistance, Outpatient PT Equipment Needed for Home Before 4WW Discharge Transportation Needs at Discharge Private Vehicle
[2019-12-20] MEDS: ATORVASTATIN 20 MG TABLET PO (16:48)
[2019-12-20] MEDS: SODIUM CHLORIDE 0.9% 1,000 ML 1000 ML IV (16:48)
[2019-12-20] MEDS: SODIUM CHLORIDE 0.9% FLUSH 10 ML IV (21:29)
[2019-12-21 00:10] VITALS: BP 143/62; PULSE 86; RESP 18; TEMP 37.3; O2SAT 98
[2019-12-21] MEDS: IBUPROFEN 400 MG TABLET PO ×5 (01:22→22:40)
[2019-12-21] MEDS: HYDROCODONE/ACET 5/325 TABLET 1 TAB PO ×6 (02:05→22:00)
[2019-12-21 05:43] VITALS: BP 117/51; PULSE 84; RESP 18; TEMP 36.4; O2SAT 91
--- NOTE | 2019-12-21 06:24 | PC.NURSE ---
Pt alert and oriented x4. SBA with FWW to bathroom. Small amount of drainage on aquacell dressing on left knee. Drainage area marked, no new drainage. Wrapped in giorgio wrap. Pt refuses SCDs. Pain controlled with PRN norco. Pt voiding without issues. No complaints at this times
[2019-12-21 08:14] VITALS: BP 148/68; PULSE 79; RESP 17; TEMP 36.7; O2SAT 93
[2019-12-21] MEDS: ASPIRIN EC 81 MG TABLET PO ×2 (09:22→22:39)
[2019-12-21] MEDS: METOPROLOL ER 50 MG TABLET 100 MG PO (09:22)
[2019-12-21] MEDS: LEVOTHYROXINE 100 MCG TABLET PO (09:22)
[2019-12-21] MEDS: ACETAMINOPHEN 325 MG TABLET 650 MG PO (09:23)
[2019-12-21] MEDS: AMLODIPINE 5 MG TABLET PO (09:24)
[2019-12-21] MEDS: SODIUM CHLORIDE 0.9% FLUSH 10 ML IV ×2 (09:25→22:40)
--- NOTE | 2019-12-21 10:01 | PM.PNPO.1 ---
Subjective Subjective Date Patient Seen: 12/21/19 Time Patient Seen: 09:00 Interval history: POD #2 s/p left total knee arthroplasty with Dr. Irving. Yesterday patient was hypotensive and dizzy during PT therapy. Her hypotension resolved and she denies dizziness, nausea, vomiting. Patient complains of mild to moderate pain in left knee. Rates 4/10. Pain managed with [place]. Voiding without difficulty/assistance. Mobilizing slowly with PT, 1 assist. She needs to be cleared for 12 steps at home. Denies fever, chills, chest pain, shortness of breath, numbness, tingling. Exam Vital Signs (past 8 hours): - 12/21/19 05:43 12/21/19 08:14 Temperature 97.6 F 98.1 F Pulse Rate 84 79 Respiratory Rate 18 17 Blood Pressure 117/51 L 148/68 H Pulse Oximetry 91 93 Oxygen Delivery Method Room Air Oxygen Flow Rate 0 Narrative Exam Narrative: 74 yo morbidly obese female is laying comfortably in bed, in no apparent distress. A&Ox3. Dressing has mild shadow drainage. SCDs not in place. Able to actively dorsiflex/plantar flex BL. Sensory function grossly intact to light touch in LE BL. Dorsalis pedis 2+ BL. Calves warm, soft, compressible, non tender to palpation BL. Objective Labs Result Diagrams: 12/20/19 07:00 Assessment & Plan Post-op Postoperative Procedures: Procedures Operation Date: 12/19/19 08:45 Actual Procedures Side Surgeon p Total Knee Arthroplasty Left Randy Irving MD Postoperative plan narrative: Mobilize with PT - currently 1 assist and needs to pass multiple steps for clearance Continue SCDs and ASA 81mg BID for DVT prophylaxis - Patient has been refusing SCDs, discussed purpose of SCDs and patient agreeable to wearing them. Continue current pain management Patient will likely discharge home in next 24-48 hours pending PT clearance for steps - She has a prescription for oxycodone at home, will need a prescription for [place] at discharge. She does not tolerate oxycodone well. Time Spent With Patient Time with patient: less than 15 minutes Quality VTE Deep Vein Thrombosis/Pulmonary Embolism Present on Admission: No
--- NOTE | 2019-12-21 10:52 | PT.IPTN ---
Current Diagnoses Bilateral primary osteoarthritis of knee (12/19/19) Surgery Performed Operation Date: 12/19/19 08:45 Actual Procedures p Total Knee Arthroplasty(Left) - Randy Irving MD Physical Therapy Treatment Note M2 PT-IP Current Condition Start: 12/19/19 16:16 Freq: NEEDED Status: Active Protocol: Document 12/19/19 14:30 AB (Rec: 12/19/19 16:37 AB [id number]) Physical Therapy Current Condition Current Condition Evaluation Date 12/19/19 Treatment Diagnosis s/p L TKA; difficulty in walking Onset Date 12/19/2019 Weight Bearing Status Weight Bearing Status Weight Bear as Tolerated Allowed Weight Bearing Amount (enter % LLE WBAT or #) (%) M3 PT-IP Subjective Start: 12/19/19 16:16 Freq: NEEDED Status: Active Protocol: Document 12/21/19 10:52 AB (Rec: 12/21/19 11:48 AB [id number]) Subjective Physical Therapy Visit Type Type Treatment Note Visit Start Time 10:52 Visit Stop Time 11:08 Total Visit Minutes 16 Number of PATIENT CASE COORDINATOR Visits 0 Physical Therapy Visit Comments Patient Comments pt initially refusing PT and stated that she is tired and was about to lay back in bed. nurse in room with pt and stated that pt got dizzy but BP was 138/77 Therapy Pain Assessment Pain When Pain Assessed At Rest Pain Present Pain Present Pain Reported Location Left Knee Intensity 2 Scale Used Numeric (1 - 10) Pain Management Techniques Apply Cold,Distraction,Re- positioning M4 PT-IP Mobility and Gait Start: 12/19/19 16:16 Freq: NEEDED Status: Active Protocol: Document 12/21/19 10:52 AB (Rec: 12/21/19 11:48 AB [id number]) PT-Bed Mobility Assessment Sit to Supine Sit to Supine Standby Assistance PT-Transfer Assessment Sit to and From Stand Sit to and from Stand Standby Assistance Equipment Transfer Assistive Device Gait Belt,4 Wheeled Walker Orthotic/Prosthetic Devices or Brace: No Comments Mobility Comments pt ambulated in room using 4WW SBA ~ 25 ft and requested to go back to bed. completed sit to supine SBA and cues for techniques. call light and table placed within reach. Gait Assessment Gait Gait Assistance Required: Standby Assistance Distance (Feet) 25 Able to Maintain Weight Bearing Status Yes During Gait Assistive Devices Assistive Device Gait Belt,4 Wheeled Walker Orthotic/Prosthetic Devices or Brace: No Gait Deviations General Gait Pattern Antalgic,Decreased Stride Length,Decreased Feet Clearance Factors Limiting Gait Function Factors Limiting Gait Function Decreased Activity Tolerance, Decreased Strength,Limited Range of Motion,Pain,Poor Balance,Poor Safety Awareness M5 PT-IP Objective Assessments Start: 12/19/19 16:16 Freq: NEEDED Status: Active Protocol: Document 12/19/19 14:30 AB (Rec: 12/19/19 16:37 AB [id number]) Orientation Orientation/Cognition Level of Alertness Alert Orientation Name,Place,Situation Language Function Ability No Deficits Noted Safety Awareness Understands Safety Issues Memory Description No Deficits Noted Gross Range of Motion Lower Extremity ROM Assessment Left Impaired Impairments L knee flexion ~ 50 deg Strength Lower Extremity Strength Assessment Left Impaired Hip 4-/5 Knee 3+/5 Coordination Assessment Gross Coordination Gross Coordination WNL Sensation Assessment Sensation Gross Sensation WNL Muscle Tone Muscle Tone WNL Yes M6 PT-IP Treatment Start: 12/19/19 16:16 Freq: NEEDED Status: Active Protocol: Document 12/21/19 10:52 AB (Rec: 12/21/19 11:48 AB [id number]) Physical Therapy Treatment Education Education Provided Safety M7 PT-IP Assessment and Plan Start: 12/19/19 16:16 Freq: NEEDED Status: Active Protocol: Document 12/21/19 10:52 AB (Rec: 12/21/19 11:48 AB [id number]) PT Summary Assessment and Plan Potential Rehabilitation Potential Good Summary Impairments Pain,ROM,Strength,Balance, Coordination,Sensation,Tone, Cognition,Bed Mobility, Transfers,Gait,Activity Tolerance Progress Towards Goals Slow Progress due to Activity Tolerance Assessment Summary pt unable to do much activity this morning but agreed to do caregiver training on next tx session. pt stated that she is not ready to go home today due to her BP and that it is only now that they have her pain under control. will continue to asses progress and complete caregiver training, stair training. Goals Bed Mobility Goal Independent Transfer Goal Independent,Front Wheeled Walker,Four Wheeled Walker Gait Goal Independent,Front Wheel Walker ,Four Wheel Walker Gait Distance 150 Other Goals up/down 12 steps L rail ascending CGA Days to Meet Goals 5 Frequency of Treatment Frequency Of Treatment Twice a Day Treatment Plan Physical Therapy Treatment Plan Bed Mobility Training,Transfer Training,Gait Training, Therapeutic Exercise,Balance Retraining,Post Op Education, Discharge Planning,Hot or Cold Pack,Neuromuscular Re-ed, Coordination Retraining,Manual Therapy Other Recommendations and Next Treatment Continue Caregiver training Focus /son, ambulate with 4WW stair mgt usign LHR 12 stairs . Check orthostatic vitals prior to tx and have portable during tx. Recommendations To Nursing Amount of Assist Needed Standby Assistance Discharge Recommendations PT Discharge Recommendations Home with Assistance, Outpatient PT Transportation Needs at Discharge Private Vehicle
[2019-12-21 11:40] VITALS: BP 141/67; PULSE 74; RESP 18; TEMP 36.6; O2SAT 93
[2019-12-21] MEDS: LOSARTAN 50 MG TABLET 75 MG PO (13:05)
--- NOTE | 2019-12-21 14:44 | PT.IPTN ---
Current Diagnoses Bilateral primary osteoarthritis of knee (12/19/19) Surgery Performed Operation Date: 12/19/19 08:45 Actual Procedures p Total Knee Arthroplasty(Left) - Randy Irving MD Physical Therapy Treatment Note M2 PT-IP Current Condition Start: 12/19/19 16:16 Freq: NEEDED Status: Active Protocol: Document 12/19/19 14:30 AB (Rec: 12/19/19 16:37 AB [id number]) Physical Therapy Current Condition Current Condition Evaluation Date 12/19/19 Treatment Diagnosis s/p L TKA; difficulty in walking Onset Date 12/19/2019 Weight Bearing Status Weight Bearing Status Weight Bear as Tolerated Allowed Weight Bearing Amount (enter % LLE WBAT or #) (%) M3 PT-IP Subjective Start: 12/19/19 16:16 Freq: NEEDED Status: Active Protocol: Document 12/21/19 14:44 AB (Rec: 12/21/19 16:46 AB [id number]) Subjective Physical Therapy Visit Type Type Treatment Note Visit Start Time 14:44 Visit Stop Time 15:26 Total Visit Minutes 42 Number of INFUSION NURSE Visits 0 Physical Therapy Visit Comments Patient Comments pt agreeable to do PT; spouse in room for caregiver training Therapy Pain Assessment Pain When Pain Assessed At Rest Pain Present Pain Present Pain Reported Location Left Knee Intensity 4 Scale Used Numeric (1 - 10) Pain Management Techniques Re-positioning,Timing of Activity with Medications M4 PT-IP Mobility and Gait Start: 12/19/19 16:16 Freq: NEEDED Status: Active Protocol: Document 12/21/19 14:44 AB (Rec: 12/21/19 16:46 AB [id number]) PT-Bed Mobility Assessment Supine to Sit Supine to Sit Standby Assistance PT-Transfer Assessment Sit to and From Stand Sit to and from Stand Contact Guard Assistance,Use of Upper Extremities Equipment Transfer Assistive Device Gait Belt,4 Wheeled Walker Orthotic/Prosthetic Devices or Brace: No Transfers Transfer Destination Wheelchair Transfer Technique ambulated using 4WW Transfer Ability Level of Assist Contact Guard Assistance Comments Mobility Comments pt supine in bed and agreeable to do PT. spouse in room for caregiver traiing. pt completed supine to sit SBA and cues. presents with difficulty completing taks and able to perform with increase time needed. BP sititng on EOB 144/58. spouse was able to put safety belt on pt and assist pt with ambulation in room using 4WW CGA ~ 20 ft. Pt has to sit down on 4WW to rest and c/o dizziness. BP: 126/61. pt rested for a few minutes and BP checked again: 121/60. pt instructed to stand up again and BP checked in standin/73. instructed pt to stay standing but stated that she has to sit down due to knee pain and dizziness. BP checked: 109/ 53. pt rested for a few minutes in sitting and BP checked again after ~2 min: 104/53. pt completed sit to stand CGA and ambulated to the chair using 4WW CGA. pt positioned on chair. call light and table placed wtihin reach. BP checked: 118/55. informed NAC regarding decrearse in BP. pt stated that she does not think she can do the stairs due to her dizziness. Gait Assessment Gait Gait Assistance Required: Contact Guard Assist Distance (Feet) 20 Able to Maintain Weight Bearing Status Yes During Gait Assistive Devices Assistive Device Gait Belt,4 Wheeled Walker Orthotic/Prosthetic Devices or Brace: No Gait Deviations General Gait Pattern Antalgic,Decreased Stride Length,Decreased Feet Clearance,Step-to Gait Factors Limiting Gait Function Factors Limiting Gait Function Decreased Activity Tolerance, Decreased Strength,Limited Range of Motion,Pain,Poor Balance,Poor Safety Awareness, Respiratory Distress Comments Gait Comments pls refer to mobility section for details M5 PT-IP Objective Assessments Start: 12/19/19 16:16 Freq: NEEDED Status: Active Protocol: Document 12/19/19 14:30 AB (Rec: 12/19/19 16:37 AB [id number]) Orientation Orientation/Cognition Level of Alertness Alert Orientation Name,Place,Situation Language Function Ability No Deficits Noted Safety Awareness Understands Safety Issues Memory Description No Deficits Noted Gross Range of Motion Lower Extremity ROM Assessment Left Impaired Impairments L knee flexion ~ 50 deg Strength Lower Extremity Strength Assessment Left Impaired Hip 4-/5 Knee 3+/5 Coordination Assessment Gross Coordination Gross Coordination WNL Sensation Assessment Sensation Gross Sensation WNL Muscle Tone Muscle Tone WNL Yes M6 PT-IP Treatment Start: 12/19/19 16:16 Freq: NEEDED Status: Active Protocol: Document 12/21/19 14:44 AB (Rec: 12/21/19 16:46 AB [id number]) Physical Therapy Treatment Education Education Provided Precautions,Safety M7 PT-IP Assessment and Plan Start: 12/19/19 16:16 Freq: NEEDED Status: Active Protocol: Document 12/21/19 14:44 AB (Rec: 12/21/19 16:46 AB [id number]) PT Summary Assessment and Plan Potential Rehabilitation Potential Good Summary Impairments Pain,ROM,Strength,Balance, Coordination,Bed Mobility, Transfers,Gait,Activity Tolerance Progress Towards Goals Slow Progress due to Medical Issues,Slow Progress due to Activity Tolerance Assessment Summary pt unable to tolerate much activity this afternoon due to decrease in BP with c/o dizziness. BP sitting 144/58 and decreased down to 104/54 after standing. unable to ambulate much or complete stairs. caregiver training was initiated yesterday and also conducted today. spouse was able to assist pt with bed mobility, transfers and ambulation but pt did not complete stair training today due to c/o dizziness. Caregiver training and stair training will be conducted prior to d/c. pt has 4+12 steps to get into bedroom level and currently is not able to even ambulate more than a few minute without c/o dizziness or decreasre in BP. will have to assess progress for safe d/c plans. Goals Bed Mobility Goal Independent Transfer Goal Independent,Front Wheeled Walker,Four Wheeled Walker Gait Goal Independent,Front Wheel Walker ,Four Wheel Walker Gait Distance 150 Other Goals up/down 12 steps L rail ascending CGA Days to Meet Goals 5 Frequency of Treatment Frequency Of Treatment Twice a Day Treatment Plan Physical Therapy Treatment Plan Bed Mobility Training,Transfer Training,Gait Training, Therapeutic Exercise,Balance Retraining,Post Op Education, Discharge Planning,Hot or Cold Pack,Neuromuscular Re-ed, Coordination Retraining,Manual Therapy Other Recommendations and Next Treatment Continue Caregiver training Focus /son, ambulate with 4WW stair mgt usign LHR 12 stairs . Check orthostatic vitals prior to tx and have portable during tx. Recommendations To Nursing Amount of Assist Needed 1 Person Assist Discharge Recommendations PT Discharge Recommendations Home with Assistance, Outpatient PT Transportation Needs at Discharge Private Vehicle
[2019-12-21 15:25] VITALS: BP 118/55; RESP 20; O2SAT 94
[2019-12-21] MEDS: ATORVASTATIN 20 MG TABLET PO (17:50)
[2019-12-21 19:54] VITALS: BP 125/55; PULSE 80; RESP 20; TEMP 36.2; O2SAT 91
[2019-12-22] VITALS (7 sets, daily range): BP systolic 111–145; BP diastolic 56–74; PULSE 66–85; RESP 20–22; TEMP 35.8–37.2; O2SAT 91–98
[2019-12-22] MEDS: HYDROCODONE/ACET 5/325 TABLET 1 TAB PO ×5 (02:30→20:47)
[2019-12-22] MEDS: IBUPROFEN 400 MG TABLET PO ×6 (05:28→23:56)
--- NOTE | 2019-12-22 06:23 | PC.NURSE ---
Some more areas of drainage marked on aquacel tonight. Patient stating her pain is only about a 2-4 out of 10. Requesting [place] q4h Refuses SCDs, educate on stroke/DVT risks, verbalized understanding. 1p FWW to BR
[2019-12-22] MEDS: METOPROLOL ER 50 MG TABLET 100 MG PO (08:19)
[2019-12-22] MEDS: AMLODIPINE 5 MG TABLET PO (08:19)
[2019-12-22] MEDS: LEVOTHYROXINE 100 MCG TABLET PO (08:19)
[2019-12-22] MEDS: ASPIRIN EC 81 MG TABLET PO ×2 (08:19→20:47)
[2019-12-22] MEDS: LOSARTAN 50 MG TABLET 75 MG PO (08:20)
[2019-12-22] MEDS: SODIUM CHLORIDE 0.9% FLUSH 10 ML IV ×2 (08:20→20:49)
--- NOTE | 2019-12-22 09:50 | PT.IPTN ---
Current Diagnoses Bilateral primary osteoarthritis of knee (12/19/19) Surgery Performed Operation Date: 12/19/19 08:45 Actual Procedures p Total Knee Arthroplasty(Left) - Randy Irving MD Physical Therapy Treatment Note M2 PT-IP Current Condition Start: 12/19/19 16:16 Freq: NEEDED Status: Active Protocol: Document 12/19/19 14:30 AB (Rec: 12/19/19 16:37 AB [id number]) Physical Therapy Current Condition Current Condition Evaluation Date 12/19/19 Treatment Diagnosis s/p L TKA; difficulty in walking Onset Date 12/19/2019 Weight Bearing Status Weight Bearing Status Weight Bear as Tolerated Allowed Weight Bearing Amount (enter % LLE WBAT or #) (%) M3 PT-IP Subjective Start: 12/19/19 16:16 Freq: NEEDED Status: Active Protocol: Document 12/22/19 09:17 KS (Rec: 12/22/19 12:41 KS [id number]) Subjective Physical Therapy Visit Type Type Treatment Note Visit Start Time 09:17 Visit Stop Time 09:50 Total Visit Minutes 33 Number of METAL MOCKUP MAKER Visits 1 Physical Therapy Visit Comments Patient Comments Pt agreeable to therapy. Spouse present in room. Therapy Pain Assessment Pain When Pain Assessed At Rest Pain Present Pain Present Pain Reported Location Left Knee Intensity 2 Scale Used Numeric (1 - 10) Pain Management Techniques Apply Cold,Re-positioning M4 PT-IP Mobility and Gait Start: 12/19/19 16:16 Freq: NEEDED Status: Active Protocol: Document 12/22/19 09:17 KS (Rec: 12/22/19 12:41 KS [id number]) PT-Bed Mobility Assessment Scooting Scooting to Edge of Bed Standby Assistance PT-Transfer Assessment Sit to and From Stand Sit to and from Stand Contact Guard Assistance,Use of Upper Extremities Equipment Transfer Assistive Device Gait Belt,4 Wheeled Walker Orthotic/Prosthetic Devices or Brace: No Transfers Transfer Destination Chair,Toilet Transfer Technique Pt ambulated using 4WW. Transfer Ability Level of Assist Contact Guard Assistance,Use of Upper Extremities Comments Mobility Comments Pt was sitting in chair upon arrival from therapy w/ in room. Pt staed that she was ready to go home, informed pt that she needed to complete stair training safely prior to d/c and she at first refused, but then agreed. Pt SBA for scooting to edge of chair and CGA w/ use of UE for sit<>stand. Pt demonstrated proper use of 4WW /application of brakes when standing. Pt then ambulated to the bathroom SBA. After using bathroom, pt stood I and ambulated to sink SBA to was hands. Pt was very fatigues and reported light headedness, BP 115/83. Pt then sat down for 5 min and requested to use bathroom again. After bathroom, pt required another sitting rest break, and then used bathroom for a third time . After 3rd bathroom use and pts high level of fatigue, it was not safe to initiate stair training w/ pt and pt stated she was too tired and did not feel safe to do the stairs anymore. Discussed w/ pt and that she is not safe to go home d/t weakness, high levels of fatigue, and not completing stairs. Pts agrees pt is not ready to go home today. Pt left in room w/ all needs in reach. Gait Assessment Gait Gait Assistance Required: Standby Assistance,Contact Guard Assist,1 Person Assist Distance (Feet) 30 Able to Maintain Weight Bearing Status Yes During Gait Assistive Devices Assistive Device Gait Belt,4 Wheeled Walker Orthotic/Prosthetic Devices or Brace: No Gait Deviations General Gait Pattern Antalgic,Decreased Stride Length,Decreased Feet Clearance,Step-to Gait Factors Limiting Gait Function Factors Limiting Gait Function Decreased Activity Tolerance, Decreased Strength,Limited Range of Motion,Pain,Poor Balance,Poor Safety Awareness, Respiratory Distress Comments Gait Comments Pt walked ~30 ft w/ 4WW and SBA to CGA in room from bathroom to chair x3. Pt had decreased stride length and foot clearance d/t guarding, pain, and weakness. Pt becomes very fatigued after short ambulation distance, requiring frequent seated rest breaks. Pt demonstrated proper use of 4WW during ambulation and sit<>stand transfers. Stair Climbing Assessment Comments Stair Climbing Comments Unable to assess d/t pts high level of fatigue. PT-Balance Assessment Sitting Balance and Reactions Static Sitting Balance Ability Good Dynamic Sitting Balance Ability Good Standing Balance and Reactions Static Standing Balance Ability Fair Dynamic Standing Balance Ability Fair Device Used 4WW M5 PT-IP Objective Assessments Start: 12/19/19 16:16 Freq: NEEDED Status: Active Protocol: Document 12/19/19 14:30 AB (Rec: 12/19/19 16:37 AB [id number]) Orientation Orientation/Cognition Level of Alertness Alert Orientation Name,Place,Situation Language Function Ability No Deficits Noted Safety Awareness Understands Safety Issues Memory Description No Deficits Noted Gross Range of Motion Lower Extremity ROM Assessment Left Impaired Impairments L knee flexion ~ 50 deg Strength Lower Extremity Strength Assessment Left Impaired Hip 4-/5 Knee 3+/5 Coordination Assessment Gross Coordination Gross Coordination WNL Sensation Assessment Sensation Gross Sensation WNL Muscle Tone Muscle Tone WNL Yes M6 PT-IP Treatment Start: 12/19/19 16:16 Freq: NEEDED Status: Active Protocol: Document 12/22/19 09:17 KS (Rec: 12/22/19 12:41 KS [id number]) Physical Therapy Treatment Education Education Provided Precautions,Weight Bearing Status,Safety M7 PT-IP Assessment and Plan Start: 12/19/19 16:16 Freq: NEEDED Status: Active Protocol: Document 12/22/19 09:17 KS (Rec: 12/22/19 12:41 KS [id number]) PT Summary Assessment and Plan Potential Rehabilitation Potential Good Summary Impairments Pain,ROM,Strength,Balance, Coordination,Bed Mobility, Transfers,Gait,Activity Tolerance Progress Towards Goals Slow Progress due to Activity Tolerance Assessment Summary Pt stated she wanted to go home, but at this point it is not safe for pt to return home today. Pt able to sit<>stand and ambulated SBA to CGA and demonstrates good usage of 4WW , however is exteremely fatigued after short ambulation distances and is unsafe to trial stairs at this time. Pt will benefit from continued LE strengthening and ambulation to increase pts tolerance for activity. Goals Bed Mobility Goal Independent Transfer Goal Independent,Front Wheeled Walker,Four Wheeled Walker Gait Goal Independent,Front Wheel Walker ,Four Wheel Walker Gait Distance 150 Other Goals up/down 12 steps L rail ascending CGA Days to Meet Goals 5 Frequency of Treatment Frequency Of Treatment Twice a Day Treatment Plan Physical Therapy Treatment Plan Bed Mobility Training,Transfer Training,Gait Training, Therapeutic Exercise,Balance Retraining,Post Op Education, Discharge Planning,Hot or Cold Pack,Neuromuscular Re-ed, Coordination Retraining,Manual Therapy Other Recommendations and Next Treatment Continue Caregiver training Focus /son, ambulate with 4WW stair mgt usign LHR 12 stairs . Check orthostatic vitals prior to tx and have portable during tx. Recommendations To Nursing Amount of Assist Needed 1 Person Assist Discharge Recommendations PT Discharge Recommendations Home with Assistance, Outpatient PT Transportation Needs at Discharge Private Vehicle
--- NOTE | 2019-12-22 10:45 | PM.PN.1 ---
Subjective Subjective Date Patient Seen: 12/22/19 Time Patient Seen: 10:46 Interval history: Patient is POD# 3 s/p left TKA with Dr. Irving. She states she continues to have lightheadedness and dizziness with mobility. Denies any nausea or vomiting. Exam Vital Signs (past 8 hours): - 12/22/19 07:48 12/22/19 08:19 12/22/19 08:20 Temperature 97.3 F L Pulse Rate 77 Respiratory Rate 22 Blood Pressure 111/58 L 111/58 L 111/58 L Pulse Oximetry 93 Oxygen Delivery Method Room Air,CPAP Oxygen Flow Rate 0 Narrative Exam Narrative: 74 year old female resting in chair. Alert and oriented no acute distress. Aquacel dressing in place on right knee is intact with clearly demarcated drainage with small amount of growth. Patient able to flex and extend the ankle. Objective Labs Result Diagrams: 12/20/19 07:00 Assessment & Plan Assessment & Plan narrative: Patient continues to complain of lightheadedness with ambulation and stairs. Hypotension appears orthostatic at this point. Will hold her Metoprolol, continue Losartan and Amlodipine for now. CBC and CMP ordered to evaluate other possible etiologies. Patient does not appear volume depleted and has good urinary output so will hold off on fluid resuscitation pending labs. Continue present pain control with Ibuprofen/Tylenol as foundation. Avoid narcotics if possible as they may contribute to lightheadedness. She should continue to work with PT. Discussed with PT who are not comfortable attempting stairs with her until symptoms resolve or improve. Patient has 3 steps to enter home and 12 steps between levels indoors. Plan is for patient to reside downstairs however will need to climb 3 steps to enter. Discharge to home tomorrow. Quality VTE Deep Vein Thrombosis/Pulmonary Embolism Present on Admission: No
[2019-12-22 12:02] LABS: Hematocrit 31.9 % (36-46); Hemoglobin 10.9 g/dL (12.0-16.0); Mean Corpuscular HGB Conc 34.4 % (30-36); Mean Corpuscular Hemoglobin 32.2 PG (26-34); Mean Corpuscular Volume 93.7 fL (80-100); Platelet Count 174 X10^3/uL (150-400); White Blood Cell Count 8.3 X10^3/uL (4.5-11.0)
[2019-12-22 12:13] LABS: Alanine Aminotransferase 23 IU/L (<35); Albumin 3.6 g/dL (3.5-5.0); Albumin Globulin Ratio 1.3 (1.0-2.8); Alkaline Phosphatase 80 U/L (38-126); Aspartate Aminotransferase 27 IU/L (14-36); BUN Creatinine Ratio 23.8 (6-22); Bilirubin Total 1.6 mg/dL (0.2-1.3); Blood Urea Nitrogen 19 mg/dL (7-17); Calcium 8.9 mg/dL (8.4-10.2); Carbon Dioxide 28 mmol/L (22-32); Chloride 101 mmol/L (98-107); Estimated Glomerular Filt Rate > 60.0 mL/min (>60); Globulin 2.8 g/dL (1.7-4.1); Glucose 101 mg/dL (80-110); HEMOLYSIS < 15 (0-50); Potassium 3.9 mmol/L (3.4-5.1); Sodium 136 mmol/L (137-145); Total Protein 6.4 g/dL (6.3-8.2)
--- NOTE | 2019-12-22 15:06 | PT-IP ANOTE ---
Pt refused therapy x2 this afternoon, stating she has already gotten up twice to use the bathroom with nursing and is too tired and trying to sleep now.
[2019-12-22] MEDS: ATORVASTATIN 20 MG TABLET PO (16:49)
--- NOTE | 2019-12-22 17:15 | PC.NURSE ---
Addendum entered by Kayla Sotelo R.N. 12/22/19 21:18: Patient up out of bed to BR, voiding, ambulating in room with steady gait, no dizziness. CPAP while asleep, call light within reach. Original Note: Amy shift note: Up out of bed to chair for dinner, tolerating mobility well, no dizziness and lightheadedness. Refuses SCDs, discussed in great detail importance of use, however patient states hates them and will not use them at all. Encouraged mobility while in bed. No family at bedside. Calls appropriately for staff assist.
[2019-12-23] MEDS: HYDROCODONE/ACET 5/325 TABLET 1 TAB PO ×3 (00:40→10:21)
[2019-12-23 01:10] VITALS: BP 124/58; PULSE 73; RESP 19; TEMP 36.6; O2SAT 92
[2019-12-23 05:50] VITALS: BP 137/73; PULSE 85; RESP 21; TEMP 36.8; O2SAT 92
[2019-12-23] MEDS: IBUPROFEN 400 MG TABLET PO ×2 (05:58→08:45)
[2019-12-23] MEDS: ASPIRIN EC 81 MG TABLET PO (08:45)
[2019-12-23] MEDS: LEVOTHYROXINE 100 MCG TABLET PO (08:45)
[2019-12-23] MEDS: SODIUM CHLORIDE 0.9% FLUSH 10 ML IV (08:46)
[2019-12-23 09:19] VITALS: BP 119/62; PULSE 78; RESP 20; TEMP 35.9; O2SAT 97
--- NOTE | 2019-12-23 09:47 | PT.IPTN ---
Current Diagnoses Bilateral primary osteoarthritis of knee (12/19/19) Surgery Performed Operation Date: 12/19/19 08:45 Actual Procedures p Total Knee Arthroplasty(Left) - Randy Irving MD Physical Therapy Treatment Note M2 PT-IP Current Condition Start: 12/19/19 16:16 Freq: NEEDED Status: Discharge Protocol: Document 12/19/19 14:30 AB (Rec: 12/19/19 16:37 AB [id number]) Physical Therapy Current Condition Current Condition Evaluation Date 12/19/19 Treatment Diagnosis s/p L TKA; difficulty in walking Onset Date 12/19/2019 Weight Bearing Status Weight Bearing Status Weight Bear as Tolerated Allowed Weight Bearing Amount (enter % LLE WBAT or #) (%) M3 PT-IP Subjective Start: 12/19/19 16:16 Freq: NEEDED Status: Discharge Protocol: Document 12/23/19 09:47 CLB (Rec: 12/23/19 14:24 CLB [id number]) Subjective Physical Therapy Visit Type Type Treatment Note Visit Start Time 09:47 Visit Stop Time 10:39 Total Visit Minutes 52 Number of MANAGER CRISIS Visits 2 Physical Therapy Visit Comments Patient Comments Pt agreeable to therapy. Therapy Pain Assessment Pain When Pain Assessed During Mobility Pain Present Pain Present Pain Reported Location Left Knee Intensity 3 Scale Used Numeric (1 - 10) Pain Management Techniques Apply Cold,Re-positioning M4 PT-IP Mobility and Gait Start: 12/19/19 16:16 Freq: NEEDED Status: Discharge Protocol: Document 12/23/19 09:47 CLB (Rec: 12/23/19 14:24 CLB [id number]) PT-Bed Mobility Assessment Sit to Supine Sit to Supine Standby Assistance Scooting Scooting to Edge of Bed Standby Assistance PT-Transfer Assessment Sit to and From Stand Sit to and from Stand Contact Guard Assistance,1 Person Assistance,Use of Upper Extremities Equipment Transfer Assistive Device Gait Belt,4 Wheeled Walker Orthotic/Prosthetic Devices or Brace: No Transfers Transfer Destination Bed,Chair,Toilet Transfer Ability Level of Assist Standby Assistance,Contact Guard Assistance,1 Person Assistance,Use of Upper Extremities Comments Mobility Comments Pt up at sink with JOY LOADER present upon arrival. Pt then felt as if she had to use the bathroom again. Pt able to perform sit<>stand SBA with use of wall rail. Pt then went back to sink and washed hands . Pt required seated rest break on 4WW with proper use of brakes during transfer. Pt with standing BP 142/74. Pt was then able to ambulate in royal ~150ft with one seated rest break. Pt without c/o dizziness or lightheadedness. Pt then returned to bed for ther ex. Pt left in bed with all needs within reach, bed alarm on and refused SCD's. Gait Assessment Gait Gait Assistance Required: Standby Assistance,Contact Guard Assist,1 Person Assist Distance (Feet) 150 Able to Maintain Weight Bearing Status Yes During Gait Assistive Devices Assistive Device Gait Belt,4 Wheeled Walker Orthotic/Prosthetic Devices or Brace: No Gait Deviations General Gait Pattern Antalgic,Decreased Stride Length,Decreased Feet Clearance,Step-to Gait Factors Limiting Gait Function Factors Limiting Gait Function Decreased Activity Tolerance, Decreased Strength,Limited Range of Motion,Pain, Respiratory Distress Comments Gait Comments Pt ambulated ~150ft in royal with one seated rest break. Pt ambulated with good posture and small step through gait pattern. Pt is able to appropriately manage 4WW during gait and transfer to sitting on seat of walker using brakes for safety. M5 PT-IP Objective Assessments Start: 12/19/19 16:16 Freq: NEEDED Status: Discharge Protocol: Document 12/19/19 14:30 AB (Rec: 12/19/19 16:37 AB [id number]) Orientation Orientation/Cognition Level of Alertness Alert Orientation Name,Place,Situation Language Function Ability No Deficits Noted Safety Awareness Understands Safety Issues Memory Description No Deficits Noted Gross Range of Motion Lower Extremity ROM Assessment Left Impaired Impairments L knee flexion ~ 50 deg Strength Lower Extremity Strength Assessment Left Impaired Hip 4-/5 Knee 3+/5 Coordination Assessment Gross Coordination Gross Coordination WNL Sensation Assessment Sensation Gross Sensation WNL Muscle Tone Muscle Tone WNL Yes M6 PT-IP Treatment Start: 12/19/19 16:16 Freq: NEEDED Status: Discharge Protocol: Document 12/23/19 09:47 CLB (Rec: 12/23/19 14:24 CLB [id number]) Physical Therapy Treatment Exercises Exercises Ankle Pumps,Quad Sets,Heel Slides,Straight Leg Raises, Short Arc Quads Education Education Provided Precautions,Weight Bearing Status,Safety Other Treatments Other Treatment Performed Pt able to perform SLR. M7 PT-IP Assessment and Plan Start: 03/04/20 16:16 Freq: NEEDED Status: Discharge Protocol: Document 12/23/19 09:47 CLB (Rec: 12/23/19 14:24 CLB [id number]) PT Summary Assessment and Plan Summary Impairments Pain,ROM,Strength,Balance, Coordination,Bed Mobility, Transfers,Gait,Activity Tolerance Progress Towards Goals Progressing Toward Goals Assessment Summary Pt with stable BP and SpO2 during tx. Pt BP in stand 142/ 74 and 148/68 in standing after ambulation. Pt increased gait distance to ~150ft with step through gait pattern and appropriate use of 4WW. Pt refused stairs at this time as she is wanting to wait until family is present. Goals Bed Mobility Goal Independent Transfer Goal Independent,Front Wheeled Walker,Four Wheeled Walker Gait Goal Independent,Front Wheel Walker ,Four Wheel Walker Gait Distance 150 Other Goals up/down 12 steps L rail ascending CGA Days to Meet Goals 5 Frequency of Treatment Frequency Of Treatment Twice a Day Treatment Plan Physical Therapy Treatment Plan Bed Mobility Training,Transfer Training,Gait Training, Therapeutic Exercise,Balance Retraining,Post Op Education, Discharge Planning,Hot or Cold Pack,Neuromuscular Re-ed, Coordination Retraining,Manual Therapy Other Recommendations and Next Treatment Continue Caregiver training Focus /son, ambulate with 4WW stair mgt usign LHR 12 stairs . Check orthostatic vitals prior to tx and have portable during tx. Recommendations To Nursing Amount of Assist Needed 1 Person Assist Discharge Recommendations PT Discharge Recommendations Home with Assistance, Outpatient PT Transportation Needs at Discharge Private Vehicle
--- NOTE | 2019-12-23 11:45 | PM.PN.1 ---
Exam Vital Signs (past 8 hours): - 12/23/19 05:50 12/23/19 09:19 Temperature 98.3 F 96.7 F L Pulse Rate 85 78 Respiratory Rate 21 20 Blood Pressure 137/73 119/62 Pulse Oximetry 92 97 Oxygen Delivery Method Room Air,CPAP Oxygen Flow Rate 0 Objective Labs Result Diagrams: 12/22/19 11:45 12/22/19 11:45 Labs: Laboratory Results - last 24 hr 12/22/19 12/22/19 11:45 11:45 WBC 8.3 RBC 3.40 L Hgb 10.9 L Hct 31.9 L MCV 93.7 MCH 32.2 MCHC 34.4 RDW 14.0 Plt Count 174 Sodium 136 L Potassium 3.9 Chloride 101 Carbon Dioxide 28 BUN 19 H Creatinine 0.80 Estimated GFR > 60.0 BUN/Creatinine Ratio 23.8 H Glucose 101 Calcium 8.9 Total Bilirubin 1.6 H AST 27 ALT 23 Alkaline Phosphatase 80 Total Protein 6.4 Albumin 3.6 Globulin 2.8 Albumin/Globulin Ratio 1.3 Assessment & Plan Assessment & Plan narrative: Patient is admitted after TKA, POD#4. Patient has been stable and progressing with physical therapy. Cleared for discharge to home. Patient is neurovascularly intact on exam. Patient has no signs or symptoms of DVT. Patient's dressing is clean dry and intact. Patient has been tolerating hydrocodone better than oxycodone for pain control. Patient will be discharged to home with hydrocodone prescription. Instructions given to the patient to bring back her oxycodone to be disposed of when back in clinic. Quality VTE Deep Vein Thrombosis/Pulmonary Embolism Present on Admission: No
--- NOTE | 2019-12-23 11:50 | PT-IP ANOTE ---
Pt unavailable echo in progress.
--- NOTE | 2019-12-23 12:50 | PT.IPTN ---
Current Diagnoses Bilateral primary osteoarthritis of knee (12/19/19) Surgery Performed Operation Date: 12/19/19 08:45 Actual Procedures p Total Knee Arthroplasty(Left) - Randy Irving MD Physical Therapy Treatment Note M2 PT-IP Current Condition Start: 12/19/19 16:16 Freq: NEEDED Status: Discharge Protocol: Document 12/19/19 14:30 AB (Rec: 12/19/19 16:37 AB [id number]) Physical Therapy Current Condition Current Condition Evaluation Date 12/19/19 Treatment Diagnosis s/p L TKA; difficulty in walking Onset Date 12/19/2019 Weight Bearing Status Weight Bearing Status Weight Bear as Tolerated Allowed Weight Bearing Amount (enter % LLE WBAT or #) (%) M3 PT-IP Subjective Start: 12/19/19 16:16 Freq: NEEDED Status: Discharge Protocol: Document 12/23/19 12:50 CLB (Rec: 12/23/19 14:38 CLB [id number]) Subjective Physical Therapy Visit Type Type Treatment Note Visit Start Time 12:50 Visit Stop Time 13:21 Total Visit Minutes 31 Number of DISTILLERY MANAGER Visits 3 Physical Therapy Visit Comments Patient Comments Pt agreeable to do therapy and and son present for CG training. Therapy Pain Assessment Pain When Pain Assessed During Mobility Pain Present Pain Present Pain Reported Location Left Knee Intensity 2 Scale Used Numeric (1 - 10) Pain Management Techniques Apply Cold,Re-positioning M4 PT-IP Mobility and Gait Start: 12/19/19 16:16 Freq: NEEDED Status: Discharge Protocol: Document 12/23/19 12:50 CLB (Rec: 12/23/19 14:38 CLB [id number]) PT-Transfer Assessment Sit to and From Stand Sit to and from Stand Standby Assistance,Use of Upper Extremities Equipment Transfer Assistive Device Gait Belt,4 Wheeled Walker Orthotic/Prosthetic Devices or Brace: No Transfers Transfer Destination Chair,Wheelchair Transfer Ability Level of Assist Standby Assistance,Use of Upper Extremities Comments Mobility Comments Pt stood from chair SBA with and son assisting with GB. Pt ambulated to royal SBA where she sat in . Pt transferred in to training stairs. Pt ambulate up/down three steps x2 with CGA of and son. Pt with fatigue after stairs rode back to room in . Pt then transferred from to chair SBA. Pt performed seated HS, discussed with family car transfer.Left pt in chair with familiy present. Pt eager to go home. All needs within reach. Gait Assessment Gait Gait Assistance Required: Standby Assistance Distance (Feet) 30 Able to Maintain Weight Bearing Status Yes During Gait Assistive Devices Assistive Device Gait Belt,4 Wheeled Walker Orthotic/Prosthetic Devices or Brace: No Gait Deviations General Gait Pattern Antalgic,Decreased Stride Length,Decreased Feet Clearance,Step-to Gait Factors Limiting Gait Function Factors Limiting Gait Function Decreased Activity Tolerance, Decreased Strength,Limited Range of Motion,Pain, Respiratory Distress Comments Gait Comments Pt ambulated to in royal and then back to room due to fatigue after stair training. Pt is ambulated SBA with good safety awareness. Stair Climbing Assessment Devices Stair Climbing Assistive Devices Left Railing,Right Railing Technique/Endurance Stair Climbing Direction Ascend and Descend Stair Climbing Technique Step to Step Number of Steps Climbed 3 Stair Climbing Set # Repetitions (reps) 2 Comments Stair Climbing Comments Pt has 14 steps at home but would only agree to perform two sets of three steps. Pt's son and able to provide CGA for stair training . PT-Balance Assessment Sitting Balance and Reactions Static Sitting Balance Ability Good Dynamic Sitting Balance Ability Good Standing Balance and Reactions Static Standing Balance Ability Fair Dynamic Standing Balance Ability Fair Device Used 4WW M5 PT-IP Objective Assessments Start: 12/19/19 16:16 Freq: NEEDED Status: Discharge Protocol: Document 12/19/19 14:30 AB (Rec: 12/19/19 16:37 AB [id number]) Orientation Orientation/Cognition Level of Alertness Alert Orientation Name,Place,Situation Language Function Ability No Deficits Noted Safety Awareness Understands Safety Issues Memory Description No Deficits Noted Gross Range of Motion Lower Extremity ROM Assessment Left Impaired Impairments L knee flexion ~ 50 deg Strength Lower Extremity Strength Assessment Left Impaired Hip 4-/5 Knee 3+/5 Coordination Assessment Gross Coordination Gross Coordination WNL Sensation Assessment Sensation Gross Sensation WNL Muscle Tone Muscle Tone WNL Yes M6 PT-IP Treatment Start: 12/19/19 16:16 Freq: NEEDED Status: Discharge Protocol: Document 12/23/19 12:50 CLB (Rec: 12/23/19 14:38 CLB [id number]) Physical Therapy Treatment Exercises Exercises Heel Slides Education Education Provided Precautions,Weight Bearing Status,Safety Other Treatments Other Treatment Performed Educated pt and pt's family on car transfer. M7 PT-IP Assessment and Plan Start: 12/19/19 16:16 Freq: NEEDED Status: Discharge Protocol: Document 12/23/19 12:50 CLB (Rec: 12/23/19 14:38 CLB [id number]) PT Summary Assessment and Plan Summary Impairments Pain,ROM,Strength,Balance, Coordination,Bed Mobility, Transfers,Gait,Activity Tolerance Progress Towards Goals Progressing Toward Goals Assessment Summary Pt able to perform stair training this session with assist of son and . Pt' s is able to appropriately assist pt with sit<>stand, gait and transfers . Pt seems able to d/c home with assist when medically stable. Goals Bed Mobility Goal Independent Transfer Goal Independent,Front Wheeled Walker,Four Wheeled Walker Gait Goal Independent,Front Wheel Walker ,Four Wheel Walker Gait Distance 150 Other Goals up/down 12 steps L rail ascending CGA Days to Meet Goals 5 Frequency of Treatment Frequency Of Treatment Twice a Day Treatment Plan Physical Therapy Treatment Plan Bed Mobility Training,Transfer Training,Gait Training, Therapeutic Exercise,Balance Retraining,Post Op Education, Discharge Planning,Hot or Cold Pack,Neuromuscular Re-ed, Coordination Retraining,Manual Therapy Recommendations To Nursing Amount of Assist Needed 1 Person Assist Discharge Recommendations PT Discharge Recommendations Home with Assistance, Outpatient PT Transportation Needs at Discharge Private Vehicle
--- NOTE | 2019-12-23 14:01 | PC.NURSE ---
Discharge instructions and script for vicodin given. Pt verbalized all d/c instructions. Pt dressed. Trans to w/c. Escorted out to private vehicle with all personal belongings. Pt left in stable condition.
--- NOTE | 2019-12-23 14:51 | CM.DPC ---
DCP Discharge Home Per MD, pt is medically stable to d/c home today with no identified barriers to discharge. Per PT, originally they had concerns with pt d/c directly home and anticipated possible SNF. But pt was able to ambulate better today and had better controlled blood pressure and now recommending safe d/c home with spouse and supportive adult son assist. Pt plans to d/c home with spouse today and son available to assist pt with the 4 steps to enter and pt has declined SNF and HH and feels comfortable with plan to d/c home today. Plan: Patient to d/c home today via family POV and no SW needs at this time. LASHAUN Brambila
== END 2019-12-23 13:50 | disposition home or self-care (01) | DRG 470 ==
LOC: OR 06:34 → AC 06:37
PROVIDERS: Physician Assistant Surgical; Admitting Provider Orthopaedic Surgery; Referring Provider Orthopaedic Surgery; Visit Provider Orthopaedic Surgery
PROC: 0SRD0JZ Replacement of Left Knee Joint with Synthetic Substitute, Open Approach (ICD-10-PCS; CPT 27447; principal; 2019-12-19 08:45)
DX: M17.12 Unilateral primary osteoarthritis, left knee (principal); Z68.42 Body mass index [BMI] 45.0-49.9, adult; I95.9 Hypotension, unspecified; E66.9 Obesity, unspecified; G47.33 Obstructive sleep apnea (adult) (pediatric); I10 Essential (primary) hypertension; E78.5 Hyperlipidemia, unspecified; E03.9 Hypothyroidism, unspecified; Z85.828 Personal history of other malignant neoplasm of skin
CPT/HCPCS: 36415; 73560; 80053; 85014; 85018; 85027; 97110; 97116; 97161; 97530; C1776; C9290; J0690; J1100; J2250; J2405; J2704; J3010

== ENCOUNTER → 2020-04-06 11:49 | Outpatient (CLI) | payer MEDICARE, OTHER, SELFPAY ==
[2019-12-19 14:49] VITALS: BMI 49.0
[2020-04-07 08:51] LABS: COVID19 Sendout NOT DETECTED (Not Detect)
== END ==
PROVIDERS: Visit Provider Physician Assistant
DX: Z01.818 Encounter for other preprocedural examination (principal)
CPT/HCPCS: 87635

== ENCOUNTER 2020-04-10 14:28 | Inpatient (IN) | payer MEDICARE, OTHER, SELFPAY ==
[2019-12-19 14:49] VITALS: BMI 49.0
[2020-04-02 12:15] VITALS: BMI 49.0
[2020-04-09] VITALS (14 sets, daily range): BP systolic 104–145; BP diastolic 53–75; PULSE 54–87; RESP 13–16; TEMP 35.6–37.2; O2SAT 91–97; BMI 49.8
--- NOTE | 2020-04-09 | DI.RAD.S_ITS ---
PROCEDURE: XR KNEE RT 1TO2V INDICATIONS: RIGHT TOTAL KNEE TECHNIQUE: 2 view(s) of the knee acquired. COMPARISON: [facility], CR, XR KNEE LT 1TO2V, 12/19/2019, 10:57. FINDINGS: Bones: Patient is status post knee joint arthroplasty. Hardware components are in expected positions. Visualized bony structures are intact. Soft tissues: Overlying postoperative changes are noted. IMPRESSION: Expected postoperative appearance Dictated by: Emiliano Raygoza M.D. on 04/09/2020 at 16:41 Approved by: Emiliano Raygoza M.D. on 04/09/2020 at 16:41
[2020-04-09] MEDS: CELECOXIB 200 MG CAPSULE 400 MG PO (12:29)
[2020-04-09] MEDS: ACETAMINOPHEN 325 MG TABLET 975 MG PO (12:29)
[2020-04-09] MEDS: GABAPENTIN 300 MG CAPSULE PO (12:29)
[2020-04-09] MEDS: LACTATED RINGERS 1,000 ML 42 ML IV ×2 (12:30→15:01)
--- NOTE | 2020-04-09 12:31 | PM.PREOP ---
Pre-operative Note COVID-19 COVID-19 status: Negative Result date/Date tested (Pos, Neg/Pending): 04/07/20 Interval Note History & Physical reviewed/Exam performed by Physician: Yes Changes to H&P: No
--- NOTE | 2020-04-09 12:33 | PM.OP.1 ---
Operative Date/Time/Diagnoses Date of procedure: 04/09/20 Time of procedure: 15:14 Pre-op diagnosis: Severe right knee osteoarthritis Post-op diagnosis: same Procedure & Clinicians Procedure: Right total knee arthroplasty Same procedure as scheduled: Yes Indications: The patient presents today for total knee arthroplasty after failure of conservative treatment. The nature of the procedure including the risks and benefits, alternatives, postoperative course and expected outcome were discussed and all questions answered. Consent was obtained. Operative site confirmed and marked. Surgeon: Randy Irving Insurance Administrative Assistant: Hai Yarbrough Anesthesia Type: General, Spinal and Local Operative Notes Findings: There was severe loss of motion prior to surgery which is measured at 15 to 80?. A +2 femoral cut was made. The tibial cut was made taking approximately 12 mm off the less affected lateral tibial plateau. The knee was nicely balanced in flexion-extension with a 10 mm spacer. The knee was left slightly looser than normal given her preoperative motion. Patellar tracking was excellent. Closure Type: primary Specimen(s): none sent Prosthetic devices, grafts, tissues, transplants, or devices: Sam and Nephew Tulio BCS: 4 femoral component, 3 tibial component, 10 mm BCS polyethylene tray and 29 x 7.5 mm round patella Applied: implant(s) Estimated Blood Loss (mL): 5 Blood products transfused: none Tourniquet time (min): 75 Procedure in detail: The patient was taken to the operative suite and placed under anesthesia. The patient was given prophylactic antibiotics prior to surgery. The patient was also given tranexamic acid, 1 g, just prior to surgery for postoperative hemostasis. The lateral knee was prepped and the joint injected with 20 mL of 1% Lidocaine with epinephrine. The knee was then prepped and draped in usual sterile fashion. The leg was exsanguinated with an Esmarch dressing and the tourniquet raised to 250 torr. A 15 cm anterior incision was made. Next a medial trivector arthrotomy was made. The extensor mechanism was marked to ensure accurate repair. Initial exposing dissection was carried out medially and laterally. The knee was then flexed and the intramedullary femoral guide fermin placed. The distal femoral cut was made in 6? of valgus at the +2 position. The femoral size was measured and the appropriate cutting block was then placed and the anterior, posterior and chamfer cuts made. The intramedullary tibial alignment fermin was then placed. The guide was set to remove approximately 12 mm from the less affected lateral side. The proximal tibial cut was then made with an oscillating saw. All meniscus and bony debris was then removed. Posterior femoral osteophytes removed with a curved osteotome. Flexion extension gaps were checked. No specific balancing was required other than routine exposure and removal of osteophytes. The soft tissues were then injected with a combination of 20 mL of half percent Marcaine with epinephrine and 20 mL of Exparel. The trial components were then placed. The knee was then extended and the patellar thickness was measured and a cut made removing approximately 9 mm of bone. The patella was then sized and drilled. Some excess lateral bone was excised and the patellofemoral ligament released. The knee went into full extension and flexion beyond 130?. There was good medial-lateral balance throughout motion. The knee was left slightly looser than normal due to her preoperative motion. Patellar tracking was excellent. The trial components were removed and the knee was cleansed with Pulsavac irrigation and dried. The final components were cemented with high viscosity vacuum mixed bone cement with antibiotics. The joint was filled with a dilute Betadine solution. The knee was held in extension and the patellar clamped until the cement was adequately cured. The knee was then irrigated. The extensor mechanism was closed with 5 interrupted #1 Vicryl sutures and a running Quill suture at approximately 90 degrees of flexion. The joint was then injected with a combination of 1 g of tranexamic acid and 20 mL of quarter percent Marcaine with epinephrine. The subcutaneous tissue was closed with 2 0 Vicryl. The skin was closed with absorbable subcuticular sutures and surgical adhesive. An Aquacel dressing and Jann wrap were then applied. The patient tolerated the procedure well and was returned to recovery room in good condition. Complications: none Post-operative Condition: stable Disposition: PACU Plan for aftercare: [facility].
[2020-04-09] MEDS: CEFAZOLIN VIAL 3 GM in SODIUM CHLORIDE 0.9% 100 ML 200 ML IV (13:20)
[2020-04-09] MEDS: LIDOCAINE 1% W/EPI 20 ML INJ (13:30)
[2020-04-09] MEDS: TRANEXAMIC ACID 1,000 MG VIAL 1000 MG IV (13:41)
--- NOTE | 2020-04-09 14:00 | SUR.OPER ---
Supine on padded OR bed. Pillow under head, arms secured on padded armboards <90 degree abduction. Safety belt across torso. Non-operative leg secured with tape over blanket over lower leg. Operative leg secured in [place] positioner. Foam padded brace at thigh of operative leg.
[2020-04-09] MEDS: BUPIVACAINE 0.25% W/ EPI (PF) 40 ML, BUPIVACAINE LIPOSOME 266 MG, SODIUM CHLORIDE 0.9% ... INJ (14:09)
[2020-04-09] MEDS: BUPIVACAINE 0.25% W/ EPI (PF) 20 ML, TRANEXAMIC ACID 1,000 MG, SODIUM CHLORIDE 0.9% 10 ML INJ (14:10)
[2020-04-09] MEDS: SODIUM CHLORIDE IRRIG SOLUTION 250 ML, POVIDONE-IODINE SPONGE STICKS 1 APPLIC IRR (14:12)
[2020-04-09] MEDS: ONDANSETRON 4 MG/2 ML INJ IV ×3 (15:35→22:00)
[2020-04-09] MEDS: HALOPERIDOL 5 MG/ML VIAL 1 MG IV ×2 (15:49→16:05)
[2020-04-09] MEDS: LACTATED RINGERS 1,000 ML 100 ML IV (16:53)
[2020-04-09] MEDS: ONDANSETRON 4 MG ODT PO (18:38)
--- NOTE | 2020-04-09 19:10 | PC.NURSE ---
Addendum entered by Nina Beltrán R.N. 04/09/20 23:59: Wakes from rest and resumes retching. C/o dizziness. Vital signs 126/75 with HR 77. Large urinary incontinence. Bladder scanned for immeasurable amount. Total bed change and pt experiences nausea/retching with movement in bed. Dr. Sam contacted by telephone and this was discussed. Orders received. Addendum entered by Nina Beltrán R.N. 04/09/20 22:54: Mostly sleeping. Rouses independently to take ice chip and upon opening eyes, retches. Zofran as per emar. Denies need to void. Refuses scd's. Continuous pulse oximeter in place with 02 @ 2L per nc. Original Note: 1630 Pt to room 214 with eyes closed. PACU nurses report pt has postop nausea and has been medicated for same. 02 1.5L per nc sats 95% per continuous monitor. Head of bed elevated. Allowed to sleep. Jann wrap to right knee dry and intact with ice to site. BL calf scd's in place. When awake and open eyes pt retches. Zofran ODT administered. Pt denies pain. Is able to move all extremities independently. JOE drain intact with green light blinking OK to right knee.
[2020-04-09] MEDS: CEFAZOLIN 2 GM/100 ML FROZ.PIGGY IV (21:59)
[2020-04-10] VITALS (8 sets, daily range): BP systolic 126–148; BP diastolic 62–76; PULSE 71–87; RESP 14–20; TEMP 36.2–37.4; O2SAT 93–98
[2020-04-10] MEDS: LACTATED RINGERS 500 ML IV (00:33)
[2020-04-10] MEDS: METOCLOPRAMIDE 10 MG/2 ML INJ IV ×2 (00:34→06:04)
[2020-04-10] MEDS: LACTATED RINGERS 1,000 ML 100 ML IV (03:37)
[2020-04-10] MEDS: IBUPROFEN 400 MG TABLET PO ×5 (05:16→20:50)
[2020-04-10] MEDS: ONDANSETRON 4 MG/2 ML INJ IV (05:16)
[2020-04-10] MEDS: HYDROCODONE/ACET 5/325 TABLET 1 TAB PO ×4 (05:17→21:59)
[2020-04-10] MEDS: CEFAZOLIN 2 GM/100 ML FROZ.PIGGY IV (05:22)
[2020-04-10 06:12] LABS: Hematocrit 38.2 % (36-46)
--- NOTE | 2020-04-10 07:02 | PM.PNPO.1 ---
Subjective Subjective Date Patient Seen: 04/10/20 Time Patient Seen: 07:35 Interval history: Patient had difficulty with nausea all night. This started immediately after she woke up from surgery. She has taken some hydrocodone this morning and seems to be doing fairly well. Exam Vital Signs (past 8 hours): - 04/10/20 00:00 04/10/20 05:19 Temperature 97.1 F L 97.6 F Pulse Rate 77 76 Respiratory Rate 20 20 Blood Pressure 126/75 139/73 Pulse Oximetry 98 93 Oxygen Delivery Method Nasal Cannula Oxygen Flow Rate 0 Narrative Exam Narrative: The dressing is intact. There is expected swelling. The leg is neurovascularly intact. Objective Labs Result Diagrams: 04/10/20 05:50 Labs: Laboratory Results - last 24 hr 04/10/20 05:50 Hgb 13.0 Hct 38.2 Assessment & Plan Post-op Postoperative Procedures: Procedures Operation Date: 04/09/20 12:15 Actual Procedures Side Surgeon p Total Knee Arthroplasty Right Randy Irving MD Postoperative day: 1 Postoperative plan narrative: The patient is progressing slowly due to nausea. I will plan on keeping her in the hospital today for was seen in continuing with physical therapy. Plan discharge tomorrow. Time Spent With Patient Time with patient: less than 15 minutes
[2020-04-10] MEDS: LEVOTHYROXINE 100 MCG TABLET PO (09:02)
[2020-04-10] MEDS: HYDROCODONE/ACET 5/325 TABLET 2 TAB PO (09:02)
--- NOTE | 2020-04-10 09:05 | PC.NURSE ---
Addendum entered by Merrill Sweeney R.N. 04/10/20 13:33: Patient states her pain was up to a 7/10 with walking, but has now settled back down to tolerable at rest. Patient would like to wait to take norco again until later. Tolerating a fruit smoothy and able to drink water. Patient has not had any further episodes of n/v today, but appetite has not returned fully to normal. Call light within reach, continue to follow. Original Note: Patient attempting pudding, juice and water at this time. Denies nausea, but continue to monitor. Assisted with walker up to chair, patient states she is feeling clostrophobic and starting to have anxiety being stuck in bed. Reports increased pain in her knee this morning, medicated with prn norco as ordered and requested from patient. Patient would like to wait before taking other morning medications at this time. Ice to knee, JOE dressing and JASSON wrap remain CDI. Continue IV fluids as ordered until patient tolerating po's. Call light within reach. Plan for physical therapy today, and anticipate patient to stay overnight tonight per Dr. Irving.
[2020-04-10] MEDS: ASPIRIN EC 81 MG TABLET PO ×2 (09:54→20:51)
--- NOTE | 2020-04-10 11:00 | PT.IIE ---
Current Diagnoses Unilateral primary osteoarthritis, right knee (04/09/20) Presence of left artificial knee joint (04/09/20) Surgery Performed Operation Date: 04/09/20 12:15 Actual Procedures p Total Knee Arthroplasty(Right) - Randy Irving MD Surgical History (Last Updated 12/07/19 @ 13:21 by Gris Selby, RN) Hx of appendectomy (Acute) Hx of arthroscopy of left knee (Acute) Hx of arthroscopy of right knee (Acute) Hx of cholecystectomy (Acute) Hx of eye surgery (Acute) Hx of tubal ligation (Acute) Medical History (Last Updated 12/07/19 @ 13:21 by Gris Selby RN) Claustrophobia (Acute) Eczema (Acute) Hearing impaired (Acute) HLD (hyperlipidemia) (Acute) HTN (hypertension) (Acute) Hypothyroidism (Acute) Melanoma (Acute ~2018) BIMAL on CPAP (Acute) Osteoarthritis (Acute) Physical Therapy Inpatient Evaluation/Re-Eval M1 PT/OT-IP Prior Functional Status Start: 04/10/20 11:45 Freq: NEEDED Status: Active Protocol: Document 04/10/20 11:00 AB (Rec: 04/10/20 12:01 AB [id number]) Medical Review Prior Functional Status Medical History Reviewed Yes Communication able to make needs known Mobility and Gait pt stated that she is modified independent with all mobilities and ambulation without AD but occasionally uses a 4WW depending on knee pain Social History Household Members spouse Living Arrangements House Number of Floors (Floors) Two Floors Number of Stairs To Enter/Railing? 2 steps without rails to enter 15 steps to bedroom level with bilateral rails Home Environment Standard Height Toilet,Walk in Shower Home Equipment Four Wheel Walker,Straight Cane,Shower Seat with Backrest Additional Social History Comment has toilet safety frrame M2 PT-IP Current Condition Start: 04/10/20 11:45 Freq: NEEDED Status: Active Protocol: Document 04/10/20 11:00 AB (Rec: 04/10/20 12:01 AB [id number]) Physical Therapy Current Condition Current Condition Evaluation Date 04/10/20 Treatment Diagnosis s/p R TKA; difficulty in walking Onset Date 04/09/20 Weight Bearing Status Weight Bearing Status Weight Bear as Tolerated Allowed Weight Bearing Amount (enter % RLE WBAT or #) (%) M3 PT-IP Subjective Start: 04/10/20 11:45 Freq: NEEDED Status: Active Protocol: Document 04/10/20 11:00 AB (Rec: 04/10/20 12:01 [id number]) Subjective Physical Therapy Visit Type Type Initial Evaluation Visit Start Time 11:00 Visit Stop Time 11:35 Total Visit Minutes 35 Number of SHANK BURNISHER Visits 0 Physical Therapy Visit Comments Patient Comments c/o dizziness and increase knee pain; pt has been medicated by nurse; pt refusing PT but later on agreed to do PT and requested to use the toilet. Therapy Pain Assessment Pain When Pain Assessed During Mobility Pain Present Pain Present Pain Reported Location Left Knee Scale Used pain scale not stated Pain Management Techniques Apply Cold,Modification of Treatment,Re-positioning, Timing of Activity with Medications M4 PT-IP Mobility and Gait Start: 04/10/20 11:45 Freq: NEEDED Status: Active Protocol: Document 04/10/20 11:00 AB (Rec: 04/10/20 12:01 [id number]) PT-Bed Mobility Assessment Supine to Sit Supine to Sit Standby Assistance,Head of Bed Elevated,Bedrails Sit to Supine Sit to Supine Standby Assistance PT-Transfer Assessment Sit to and From Stand Sit to and from Stand Contact Guard Assistance,1 Person Assistance,Use of Upper Extremities Equipment Transfer Assistive Device Gait Belt,Front Wheeled Walker Orthotic/Prosthetic Devices or Brace: No Transfers Transfer Destination Toilet Transfer Technique ambulated using FWW Transfer Ability Level of Assist Contact Guard Assistance,1 Person Assistance,Use of Upper Extremities Comments Mobility Comments completed supine to sit SBA and was able to sit on EOB SBA . BP 133/68. pt requested to use the toilet and prefers to use her 4WW than the FWW. completed sit to stand CGA ambulated towards the toilet using 4WW CGA. cued for safety use of 4WW and activation of R quads. completed toileting. pt sit to stand from toilet requiring CGA and cues. ambulated back to bed using 4WW CGA. completed sit to supine SBA. positioned pt in bed. call light and table within reach. pt stated that she does not feel that she is ready to do stairs but agreed for PT to see her later in the afternoon. Gait Assessment Gait Gait Assistance Required: Contact Guard Assist Distance (Feet) 20 Able to Maintain Weight Bearing Status Yes During Gait Assistive Devices Assistive Device Gait Belt,4 Wheeled Walker Orthotic/Prosthetic Devices or Brace: No Gait Deviations General Gait Pattern Antalgic,Decreased Stride Length,Decreased Feet Clearance,Step-to Gait Factors Limiting Gait Function Factors Limiting Gait Function Decreased Activity Tolerance, Decreased Strength,Limited Range of Motion,Pain,Poor Balance,Poor Safety Awareness PT-Balance Assessment Sitting Balance and Reactions Static Sitting Balance Ability Good Dynamic Sitting Balance Ability Good Standing Balance and Reactions Static Standing Balance Ability Fair Dynamic Standing Balance Ability Fair Device Used 4WW M5 PT-IP Objective Assessments Start: 04/10/20 11:45 Freq: NEEDED Status: Active Protocol: Document 04/10/20 11:00 AB (Rec: 04/10/20 12:01 [id number]) Orientation Orientation/Cognition Level of Alertness Alert Orientation Name,Age,Place,Situation Language Function Ability No Deficits Noted Safety Awareness Decreased Safety Awareness Memory Description No Deficits Noted Gross Range of Motion Lower Extremity ROM Assessment Right Impaired Impairments R knee flexion: ~ 50 deg extension: -20 deg Strength Lower Extremity Strength Assessment Right Impaired Hip 3+/5 Knee 3+/5 Coordination Assessment Gross Coordination Gross Coordination WNL Sensation Assessment Sensation Gross Sensation WNL Muscle Tone Muscle Tone WNL Yes M6 PT-IP Treatment Start: 04/10/20 11:45 Freq: NEEDED Status: Active Protocol: Document 04/10/20 11:00 AB (Rec: 04/10/20 12:01 [id number]) Physical Therapy Treatment Exercises Exercises Quad Sets,Heel Slides Education Education Provided Precautions,Weight Bearing Status,Post-Op Packet,Safety M7 PT-IP Assessment and Plan Start: 04/10/20 11:45 Freq: NEEDED Status: Active Protocol: Document 04/10/20 11:00 AB (Rec: 04/10/20 12:01 [id number]) PT Summary Assessment and Plan Potential Rehabilitation Potential Good Summary Impairments Pain,ROM,Strength,Balance, Coordination,Sensation,Tone, Cognition,Bed Mobility, Transfers,Gait,Activity Tolerance Assessment Summary pt c/o dizziness and pain and requires motivation to participate. requires CGA with mobility at this time but has to complete stair climbing prior to d/c. pt stated that she does not feel she can do stairs at this time . pt plans to have her spouse and son to assist her. pt has not set up outpt PT but stated that she will. Goals Bed Mobility Goal Independent Transfer Goal Independent,Four Wheeled Walker Gait Goal Independent,Four Wheel Walker Gait Distance 150 Other Goals up/down 2 steps using SPC/PACKAGING ENGINEER min A up/down 15 steps using bilateral rails CGA Days to Meet Goals 5 Frequency of Treatment Frequency Of Treatment Twice a Day Treatment Plan Physical Therapy Treatment Plan Bed Mobility Training,Transfer Training,Gait Training, Therapeutic Exercise,Balance Retraining,Post Op Education, Discharge Planning,Hot or Cold Pack,Neuromuscular Re-ed, Coordination Retraining,Manual Therapy Other Recommendations and Next Treatment ambulation, stair climbing, Focus caregiver training when appropriate Recommendations To Nursing Amount of Assist Needed 1 Person Assist Discharge Recommendations PT Discharge Recommendations Home with Assistance, Outpatient PT Transportation Needs at Discharge Private Vehicle
--- NOTE | 2020-04-10 11:40 | CM.DANOTE ---
DCP: Case received, EMR reviewed and met with patient. Introduced self and role. Was able to meet with patient and obtain information regarding her baseline activity level prior to surgery, as well as her current living situation. DCP assessment completed with information currently available. Patient is a 74 year old female who admitted yesterday morning to the care of the orthopedic team. PCP: Dr. Dow. Payer: confirmed: Medicare/[facility]. Patient came to the hospital via private vehicle for a surgical procedure. She had right total knee arthroscopy. Patient had had history of osteoarthritis, and has had surgery on her left knee in the past as well. Met with patient in her room. She was sitting up in her chair with her knee elevated. She is alert and oriented. She resides in [place] with her spouse, Cem. She uses a 4 wheeled walker at her baseline. Stated she knows what to expect, she has been through this before. She mentioned that she was having severe nausea last pm, but is starting to feel better. P: DCP to continue to follow for any needs. Patient should be able to discharge home tomorrow if she is medically stable. She will continue working with Cholo Hooker RN/Curb Builder
--- NOTE | 2020-04-10 14:45 | PT.IPTN ---
Current Diagnoses Unilateral primary osteoarthritis, right knee (04/10/20) Presence of left artificial knee joint (04/10/20) Surgery Performed Operation Date: 04/09/20 12:15 Actual Procedures p Total Knee Arthroplasty(Right) - Randy Irving MD Physical Therapy Treatment Note M2 PT-IP Current Condition Start: 04/10/20 11:45 Freq: NEEDED Status: Active Protocol: Document 04/10/20 11:00 AB (Rec: 04/10/20 12:01 AB [id number]) Physical Therapy Current Condition Current Condition Evaluation Date 04/10/20 Treatment Diagnosis s/p R TKA; difficulty in walking Onset Date 04/09/20 Weight Bearing Status Weight Bearing Status Weight Bear as Tolerated Allowed Weight Bearing Amount (enter % RLE WBAT or #) (%) M3 PT-IP Subjective Start: 04/10/20 11:45 Freq: NEEDED Status: Active Protocol: Document 04/10/20 14:45 AB (Rec: 04/10/20 16:50 AB [id number]) Subjective Physical Therapy Visit Type Type Treatment Note Visit Start Time 14:45 Visit Stop Time 15:15 Total Visit Minutes 30 Number of CUPOLA LINER HELPER Visits 0 Physical Therapy Visit Comments Patient Comments checked on pt ~ 1335 and was refusing PT. stated that she will take her pain meds and PT to work with her after an hour. Therapy Pain Assessment Pain When Pain Assessed At Rest Pain Present Pain Present Pain Reported Location Left Knee Intensity 7 Scale Used Numeric (0 - 10) Pain Management Techniques Apply Cold,Modification of Treatment,Re-positioning, Timing of Activity with Medications M4 PT-IP Mobility and Gait Start: 04/10/20 11:45 Freq: NEEDED Status: Active Protocol: Document 04/10/20 14:45 AB (Rec: 04/10/20 16:50 AB [id number]) PT-Bed Mobility Assessment Sit to Supine Sit to Supine Standby Assistance PT-Transfer Assessment Sit to and From Stand Sit to and from Stand Contact Guard Assistance, Minimal Assistance,1 Person Assistance,Use of Upper Extremities Equipment Transfer Assistive Device Gait Belt,4 Wheeled Walker Orthotic/Prosthetic Devices or Brace: No Transfers Transfer Destination Toilet Transfer Technique ambulated using FWW Transfer Ability Level of Assist Contact Guard Assistance, Minimal Assistance,1 Person Assistance,Use of Upper Extremities Comments Mobility Comments NAC in room and was about to assist pt to the toilet. PT took over. pt completed sit to stand min A and cues. pt c /o increase R knee pain. pt educated on R knee mobility/ exercises when sitting/supine to decrease R knee tightness. pt ambulated to the toilet using 4WW CGA to min A. completed sit to stand from toilet using grab bar CGA. ambulated using 4WW towards the sink CGA to min A and was able to maintain standing leaning on counter CGA while completing handwasing. pt ambulated to the chair CGA to min A using 4WW. assisted with gown change. pt ambulated in room ~ 30 ft and requested to go back to bed. pt stated that she is not ready to do steps. completed sit to supine SBA. positioned in bed. call light and table within reach. bed alarm on. Gait Assessment Gait Gait Assistance Required: Contact Guard Assist,Minimum Assistance Distance (Feet) 30 Assistive Devices Assistive Device Gait Belt,4 Wheeled Walker Orthotic/Prosthetic Devices or Brace: No Gait Deviations General Gait Pattern Antalgic,Decreased Stride Length,Decreased Feet Clearance Factors Limiting Gait Function Factors Limiting Gait Function Decreased Activity Tolerance, Decreased Strength,Limited Range of Motion,Pain,Poor Balance,Poor Safety Awareness Comments Gait Comments pls refer to mobility section for details Stair Climbing Assessment Comments Stair Climbing Comments pt refused stair climbing M5 PT-IP Objective Assessments Start: 04/10/20 11:45 Freq: NEEDED Status: Active Protocol: Document 04/10/20 11:00 AB (Rec: 04/10/20 12:01 AB [id number]) Orientation Orientation/Cognition Level of Alertness Alert Orientation Name,Age,Place,Situation Language Function Ability No Deficits Noted Safety Awareness Decreased Safety Awareness Memory Description No Deficits Noted Gross Range of Motion Lower Extremity ROM Assessment Right Impaired Impairments R knee flexion: ~ 50 deg extension: -20 deg Strength Lower Extremity Strength Assessment Right Impaired Hip 3+/5 Knee 3+/5 Coordination Assessment Gross Coordination Gross Coordination WNL Sensation Assessment Sensation Gross Sensation WNL Muscle Tone Muscle Tone WNL Yes M6 PT-IP Treatment Start: 04/10/20 11:45 Freq: NEEDED Status: Active Protocol: Document 04/10/20 14:45 AB (Rec: 04/10/20 16:50 AB [id number]) Physical Therapy Treatment Education Education Provided Safety M7 PT-IP Assessment and Plan Start: 04/10/20 11:45 Freq: NEEDED Status: Active Protocol: Document 04/10/20 14:45 AB (Rec: 04/10/20 16:50 AB [id number]) PT Summary Assessment and Plan Potential Rehabilitation Potential Fair Summary Impairments Pain,ROM,Strength,Balance, Coordination,Sensation,Tone, Cognition,Bed Mobility, Transfers,Gait,Activity Tolerance Progress Towards Goals Slow Progress due to Pain Assessment Summary pt requiring CGA to min A with mobility but refuse to do stair climbing. stated that she has her son and spouse to assist her with steps. will conduct caregiver training tomorrow with spouse ~07/1030 am. pt agreed. Goals Bed Mobility Goal Independent Transfer Goal Independent,Four Wheeled Walker Gait Goal Independent,Four Wheel Walker Gait Distance 150 Other Goals up/down 2 steps using SPC/AMMONIA REFRIGERATION WORKER min A up/down 15 steps using bilateral rails CGA Days to Meet Goals 5 Frequency of Treatment Frequency Of Treatment Twice a Day Treatment Plan Physical Therapy Treatment Plan Bed Mobility Training,Transfer Training,Gait Training, Therapeutic Exercise,Balance Retraining,Post Op Education, Discharge Planning,Hot or Cold Pack,Neuromuscular Re-ed, Coordination Retraining,Manual Therapy Other Recommendations and Next Treatment ambulation, stair climbing, Focus caregiver training when appropriate Recommendations To Nursing Amount of Assist Needed 1 Person Assist Discharge Recommendations PT Discharge Recommendations Home with Assistance, Outpatient PT Transportation Needs at Discharge Private Vehicle
[2020-04-10] MEDS: ACETAMINOPHEN 325 MG TABLET 650 MG PO ×2 (15:32→20:51)
--- NOTE | 2020-04-10 17:24 | PC.NURSE ---
Addendum entered by Nina Beltrán R.N. 04/10/20 23:28: Pt reports feeling sleepy. No longer tremulous. Reports feeling more relaxed. Toileted in bathroom with standby assistance and into bed with cpap. RLE supported on lengthwise pillow x 1. Bed alarm in place. Addendum entered by Nina Beltrán R.N. 04/10/20 22:22: Pt becomes tremulous and expresses feelings of anxiety while in bed. Assisted out of bed and into hallway. Pushed around hallway in wheelchair by staff with pt wearing mask. Returned to room and up in bariatric recliner. Anxiety not improved. Cold washcloths, fan, instructed in breathing and visualization techniques. Pt reports anxiety attacks have not previously been this pronounced and pt reports does not take med at home for such. Requests med from this news writer. Call to Dr. Ramirez and discussed. Order for valium received and pt informed. Addendum entered by Nina Beltrán R.N. 04/10/20 20:39: Pt admits to anxiety and claustrophobia. Reports better sitting up on walker seat and out in hallway. This was facilitated. Denies pain to right knee with sitting posture. Reports pain increases with ambulation and activity. Offered pt additional/other pain medications and pt declines. Original Note: Pt requests assistance to sit up at bedside. Assisted by TAPER PRINTED CIRCUIT LAYOUT to mobilize to chair for evening meal. Denies nausea and denies pain to right knee @ rest increasing with weight bearing and activity. Reports full sensation to BL LE's. Edema noted to RLE. Pt reports h/o baseline edema to BL LE's r/t medication use to treat arthritis. I.S. use encouraged. Taking oral fluids well. Encouraged to call for needs. JOE drain to right knee with green light blinking OK in battery pack. Jann wrap in place to right knee.
[2020-04-10] MEDS: SODIUM CHLORIDE 0.9% FLUSH 10 ML IV (18:15)
[2020-04-10] MEDS: DOCUSATE 100 MG CAPSULE PO (19:39)
[2020-04-10] MEDS: ATORVASTATIN 20 MG TABLET PO (20:51)
[2020-04-10] MEDS: diazePAM 5 MG TABLET PO (22:26)
[2020-04-11 00:05] VITALS: BP 129/55; PULSE 83; RESP 20; TEMP 36.1; O2SAT 93
[2020-04-11] MEDS: IBUPROFEN 400 MG TABLET PO ×3 (00:57→09:17)
[2020-04-11] MEDS: HYDROCODONE/ACET 5/325 TABLET 1 TAB PO ×3 (01:30→09:18)
[2020-04-11 04:15] VITALS: BP 149/66; PULSE 102; RESP 24; TEMP 36.4; O2SAT 92
--- NOTE | 2020-04-11 07:13 | P.PN_ITS ---
Subjective Subjective Date Patient Seen: 04/11/20 Time Patient Seen: 07:14 Interval history: The patient is progressing well. Pain is well controlled. She did have a panic attack last night which was treated nicely with Valium. Feels ready for discharge today. Exam Vital Signs (past 8 hours): - 04/11/20 00:05 04/11/20 04:15 Temperature 97.0 F L 97.5 F L Pulse Rate 83 102 H Respiratory Rate 20 24 Blood Pressure 129/55 L 149/66 H Pulse Oximetry 93 92 Oxygen Delivery Method Room Air,CPAP Oxygen Flow Rate 0 Narrative Exam Narrative: The dressing is intact. There is expected swelling. The leg is neurovascularly intact. Objective Labs Result Diagrams: 04/10/20 05:50 Assessment & Plan Post-op Postoperative Procedures: Procedures Operation Date: 04/09/20 12:15 Actual Procedures Side Surgeon p Total Knee Arthroplasty Right Randy Irving MD Postoperative day: 1 Postoperative status narrative: The patient is progressing as expected postop da y 1 total knee arthroplasty. Will discharge to home today. [facility] Protocol. I will give her some Valium in case she has any more issues with panic attacks. Daily knee range of motion exercises at home. Will start physical therapy within the next week. May leave dressing on for 7-14 days if intact. May shower over dressing. Follow up in 2 weeks. Time Spent With Patient Time with patient: less than 15 minutes
[2020-04-11 07:16] VITALS: BP 140/68; PULSE 84; RESP 18; TEMP 36.9; O2SAT 93
[2020-04-11] MEDS: ACETAMINOPHEN 325 MG TABLET 650 MG PO (07:47)
[2020-04-11] MEDS: LEVOTHYROXINE 100 MCG TABLET PO (07:48)
[2020-04-11] MEDS: ASPIRIN EC 81 MG TABLET PO (07:48)
[2020-04-11] MEDS: DOCUSATE 100 MG CAPSULE PO (07:48)
[2020-04-11] MEDS: SODIUM CHLORIDE 0.9% FLUSH 10 ML IV (07:48)
--- NOTE | 2020-04-11 11:06 | PT.IPTN ---
Current Diagnoses Unilateral primary osteoarthritis, right knee (04/10/20) Presence of left artificial knee joint (04/10/20) Surgery Performed Operation Date: 04/09/20 12:15 Actual Procedures p Total Knee Arthroplasty(Right) - Randy Irving MD Physical Therapy Treatment Note M2 PT-IP Current Condition Start: 04/10/20 11:45 Freq: NEEDED Status: Discharge Protocol: Document 04/10/20 11:00 AB (Rec: 04/10/20 12:01 AB [id number]) Physical Therapy Current Condition Current Condition Evaluation Date 04/10/20 Treatment Diagnosis s/p R TKA; difficulty in walking Onset Date 04/09/20 Weight Bearing Status Weight Bearing Status Weight Bear as Tolerated Allowed Weight Bearing Amount (enter % RLE WBAT or #) (%) M3 PT-IP Subjective Start: 04/10/20 11:45 Freq: NEEDED Status: Discharge Protocol: Document 04/11/20 10:37 KS (Rec: 04/11/20 13:39 KS [id number]) Subjective Physical Therapy Visit Type Type Treatment Note Visit Start Time 10:37 Visit Stop Time 11:06 Total Visit Minutes 29 Number of CORRECTIONAL OFFICER CAPTAIN Visits 1 Physical Therapy Visit Comments Patient Comments Pt agreeable to work w/ therapy. Pts son who is a PT was present for caregiver training. Therapy Pain Assessment Pain When Pain Assessed During Mobility Pain Present Pain Present Denied Pain M4 PT-IP Mobility and Gait Start: 04/10/20 11:45 Freq: NEEDED Status: Discharge Protocol: Document 04/11/20 10:37 KS (Rec: 04/11/20 13:39 KS [id number]) PT-Bed Mobility Assessment Supine to Sit Supine to Sit Standby Assistance Sit to Supine Sit to Supine Standby Assistance PT-Transfer Assessment Sit to and From Stand Sit to and from Stand Standby Assistance,Contact Guard Assistance,1 Person Assistance,Use of Upper Extremities Equipment Transfer Assistive Device Gait Belt,4 Wheeled Walker Orthotic/Prosthetic Devices or Brace: No Transfers Transfer Destination Bed,Chair Transfer Technique ambulated using FWW Transfer Ability Level of Assist Standby Assistance,Contact Guard Assistance,1 Person Assistance,Use of Upper Extremities Comments Mobility Comments Pt is chair upon arrival from therapy w/ son in room for caregiver training. Pt SBA for scooting to edge of chair and SBA to CGA for sit<>stand. Pt then ambulated CGA w/ 4WW to w/c and was taken to stairs. Pt completed 3 steps w/ step to step pattern w/ son providing CGA and cues for sequencing. Pt and son state they both feel safe to complete steps at home. Pt then ambulated ~150 ft w/ son providing CGA. Cues for equal step length. Pt demonstrated proper use of 4WW. Pt then returned to room and performed bed mobility, sit<>sup, repositioning, and then sup<> sit all SBA. Pt then trasnferred to sit on 4WW SBA, left in room w/ son and all needs in reach. Gait Assessment Gait Gait Assistance Required: Contact Guard Assist,1 Person Assist Distance (Feet) 150 Able to Maintain Weight Bearing Status Yes During Gait Assistive Devices Assistive Device Gait Belt,4 Wheeled Walker Orthotic/Prosthetic Devices or Brace: No Gait Deviations General Gait Pattern Antalgic,Decreased Stride Length,Decreased Feet Clearance Factors Limiting Gait Function Factors Limiting Gait Function Decreased Activity Tolerance, Decreased Strength,Limited Range of Motion,Pain,Poor Balance,Poor Safety Awareness Comments Gait Comments Please refer to mobility section for details. Stair Climbing Assessment Evaluation Level of Assist On Stairs Contact Guard Assistance,1 Person Assistance Devices Stair Climbing Assistive Devices Left Railing Technique/Endurance Stair Climbing Direction Ascend and Descend Stair Climbing Technique Step to Step Number of Steps Climbed 3 Stair Climbing Set # Repetitions (reps) 1 Comments Stair Climbing Comments Pt completed stair training w/ son providing safe CGA and cues for sequencing. Pt used L hand rail (pts son stated he installed handrails at home) and step to step pattern. PT-Balance Assessment Sitting Balance and Reactions Static Sitting Balance Ability Good Dynamic Sitting Balance Ability Good Standing Balance and Reactions Static Standing Balance Ability Good Dynamic Standing Balance Ability Fair Device Used 4WW M5 PT-IP Objective Assessments Start: 04/10/20 11:45 Freq: NEEDED Status: Discharge Protocol: Document 04/10/20 11:00 AB (Rec: 04/10/20 12:01 AB [id number]) Orientation Orientation/Cognition Level of Alertness Alert Orientation Name,Age,Place,Situation Language Function Ability No Deficits Noted Safety Awareness Decreased Safety Awareness Memory Description No Deficits Noted Gross Range of Motion Lower Extremity ROM Assessment Right Impaired Impairments R knee flexion: ~ 50 deg extension: -20 deg Strength Lower Extremity Strength Assessment Right Impaired Hip 3+/5 Knee 3+/5 Coordination Assessment Gross Coordination Gross Coordination WNL Sensation Assessment Sensation Gross Sensation WNL Muscle Tone Muscle Tone WNL Yes M6 PT-IP Treatment Start: 04/10/20 11:45 Freq: NEEDED Status: Discharge Protocol: Document 04/11/20 10:37 KS (Rec: 04/11/20 13:39 KS [id number]) Physical Therapy Treatment Education Education Provided Weight Bearing Status,Safety M7 PT-IP Assessment and Plan Start: 04/10/20 11:45 Freq: NEEDED Status: Discharge Protocol: Document 04/11/20 10:37 KS (Rec: 04/11/20 13:39 KS [id number]) PT Summary Assessment and Plan Potential Rehabilitation Potential Good Summary Impairments Pain,ROM,Strength,Balance, Coordination,Sensation,Tone, Cognition,Bed Mobility, Transfers,Gait,Activity Tolerance Progress Towards Goals Progressing Toward Goals Assessment Summary Pt showed improvements w/ tolerance for activity today. SBA for bed mobility, SBA to CGA for transfers, CGA and cues for ambulation and stair training. Pt ambulated ~150 ft w/ 4WW and CGA/cues provided by son and completed stairs w/ CGA provided by son as well. Pts son is a Physical Therapist and will be able to provide assist to pt at home if needed. Pt would benefit from outpatient therapy to improve strength, ROM, and functional mobility. Goals Bed Mobility Goal Independent Transfer Goal Independent,Four Wheeled Walker Gait Goal Independent,Four Wheel Walker Gait Distance 150 Other Goals up/down 2 steps using SPC/WAITER/WAITRESS BAR min A up/down 15 steps using bilateral rails CGA Days to Meet Goals 5 Frequency of Treatment Frequency Of Treatment Twice a Day Treatment Plan Physical Therapy Treatment Plan Bed Mobility Training,Transfer Training,Gait Training, Therapeutic Exercise,Balance Retraining,Post Op Education, Discharge Planning,Hot or Cold Pack,Neuromuscular Re-ed, Coordination Retraining,Manual Therapy Recommendations To Nursing Amount of Assist Needed 1 Person Assist Discharge Recommendations PT Discharge Recommendations Home with Assistance, Outpatient PT Transportation Needs at Discharge Private Vehicle
--- NOTE | 2020-04-11 11:41 | PC.NURSE ---
Patient cleared with physical therapy for discharge, caregiver training complete with patients son. Went over dc instructions and medications with patient. Questions answered. Rx for medications given. Patient taken via wc to vehicle driven by son. Patient had all her belongings, bilat hearing aids in patients ears, glasses and cpap sent home with patient.
--- NOTE | 2020-04-11 13:57 | CM.DPC ---
DCP: continued: Case received, EMR reviewed and d/c order noted. Pt did work with pt today and this included caregiver training with pt's son (who is a PT). A check in later showed that pt did d/c to home after the PT session in company of her son at 1140.
== END 2020-04-11 11:43 | disposition home or self-care (01) | DRG 470 ==
LOC: OR 14:43 → AC 14:43
PROVIDERS: Admitting Provider Orthopaedic Surgery; Referring Provider Orthopaedic Surgery; Visit Provider Orthopaedic Surgery
PROC: 0SRC0JZ Replacement of Right Knee Joint with Synthetic Substitute, Open Approach (ICD-10-PCS; CPT 27447; principal; 2020-04-09 12:15)
DX: M17.11 Unilateral primary osteoarthritis, right knee (principal); Z96.652 Presence of left artificial knee joint; I10 Essential (primary) hypertension; G47.33 Obstructive sleep apnea (adult) (pediatric); E03.9 Hypothyroidism, unspecified; R11.0 Nausea; F41.0 Panic disorder [episodic paroxysmal anxiety]
CPT/HCPCS: 36415; 73560; 85014; 85018; 97116; 97162; 97530; C1776; C9290; J0690; J1100; J1630; J2274; J2405; J2704; J2765